=== PATIENT | female | born 1985 | race Caucasian/White ===

== ENCOUNTER 2019-04-24 18:19 | Emergency (ER) | payer MEDICARE, SELFPAY ==
--- NOTE | 2019-04-24 18:27 | XR_ITS ---
WS: [id number] CHEST 2 VIEWS HISTORY: cough COMPARISON: 07/13/2016 Lungs: Clear with no abnormality. No pleural effusion or pneumothorax. Cardiac size: Normal. Mediastinum/Aorta: Normal mediastinum. Bones: Normal. XR/XR chest 2V* [id number] IMPRESSION: Normal chest.
[2019-04-24 18:43] VITALS: BP 142/94; PULSE 94; RESP 16; TEMP 36.9; O2SAT 98; BMI 33.3
== END 2019-04-24 20:42 | disposition home or self-care (01) ==
LOC: ER 19:38
PROVIDERS: Emergency Provider Nurse Practitioner Family; Family Provider Family Medicine; PCP Family Medicine
DX: Z53.21 Procedure and treatment not carried out due to patient leaving prior to being seen by health care provider (principal)
CPT/HCPCS: 71046; 99281

== ENCOUNTER 2019-05-15 13:34 | Emergency (ER) | payer MEDICARE, SELFPAY ==
[2019-05-15 14:01] VITALS: BP 133/98; PULSE 119; RESP 18; TEMP 37.1; O2SAT 99; BMI 33.6
[2019-05-15 14:54] LABS: Influenza A by IFA Negative (Negative); Influenza B by IFA Positive (Negative)
--- NOTE | 2019-05-15 15:11 | ED_ITS ---
Entered by Radha Urias, acting as scribe for Jessica Beauchamp MD May 15, 2019 13:34 HPI - Fever General: Chief Complaint: Fever Stated Complaint: flu s/s Time Seen by Provider: 05/15/19 15:11 Source: patient Mode of arrival: ambulatory Limitations: no limitations History of Present Illness: HPI Narrative: 34 yo Female presents to ED with complaint of flu like symptoms. Pt states that she woke up Tuesday and was fine and a little later in the day she was feeling bad. MD elicited complaint: fever Onset (ago): day(s) Exacerbating factors: nothing Relieving factors: nothing Associated symptoms: Reports chills, headache(s) and myalgias; Deny abdominal pain, chest pain, diarrhea, dysuria, nausea or vomiting Review of Systems 2 Const: Reports: fever, chills and body aches Eyes: Denies: blurry vision or eye discomfort ENMT: Denies: throat pain or dental pain Card: Denies: chest pain Resp: Denies: shortness of breath GI: Denies: abdominal pain, nausea, vomiting or diarrhea : Denies: painful urination Musc: Denies: neck pain or back pain Skin/Breast: Denies: rash Neuro: Reports: headache Psych: Denies: depression Medhat/Lymph: Denies: easy bruising All/Imm: Denies: hives PFSH ED PFSH: Statuses (acute, chronic, etc) shown below reflect problem list status as previously entered and may not be historically accurate Social History Smoking and tobacco status: current every day smoker Female Reproductive History: Date of last menstrual period: 03/02/14 Physical Exam Const: COMMON NORMALS: no apparent distress, oriented x3 and healthy appearing HENMT: COMMON NORMALS: normocephalic and head/scalp atraumatic HEAD & SCALP: normocephalic and atraumatic Eye: COMMON NORMALS: PERRL and EOMs intact bilaterally PUPIL: Yes PERRL Neck/C-Spine: COMMON NORMALS: full ROM and supple Chest: COMMONS NORMALS: inspection of chest normal and palpation of chest normal Resp: COMMON NORMALS: normal respiratory effort, no retractions, no use of accessory muscles and clear to auscultation bilaterally AUSCULTATION: clear to auscultation bilaterally Cardio: COMMON NORMALS: regular rate, regular rhythm and no murmurs RATE: regular rate RHYTHM: regular rhythm GI: COMMON NORMALS: normal to inspection, nondistended, normoactive bowel sounds, soft to palpation, non-tender and no masses PALPATION: Yes soft Extremity: COMMON NORMALS: normal to inspection and full ROM Neuro: COMMON NORMALS: oriented x3, moves all extremities and no focal motor deficits Psych: COMMON NORMALS: mental status grossly normal, thought process normal and cooperative THOUGHT PROCESS: normal thought process Skin: COMMON NORMALS: no rashes or lesions noted and no wounds GENERAL SKIN EXAM: no rashes or lesions noted Course Vital Signs: Vital signs: Vital Signs Temperature 98.7 F 05/15/19 14:01 Pulse Rate 119 H 05/15/19 14:01 Respiratory Rate 18 05/15/19 14:01 Blood Pressure 133/98 05/15/19 14:01 Pulse Oximetry 99 05/15/19 14:01 MDM - Fever MDM Narrative: Medical decision making narrative: Patient presents here with fever along with chills and tested positive for flu B. Patient's otherwise well-appearing here. She has no signs of pneumonia or sepsis. She is out of the treatment window for Tamiflu. She is to follow-up with her primary care doctor in 3 to 5 days and return to the ER if she is feeling worse. She understands and agrees to this plan. 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
[2019-05-15 15:43] VITALS: BP 137/85; PULSE 84; RESP 20; O2SAT 97
== END 2019-05-15 15:44 | disposition home or self-care (01) ==
PROVIDERS: Emergency Provider Emergency Medicine; Family Provider Family Medicine
DX: J11.1 Influenza due to unidentified influenza virus with other respiratory manifestations (principal); F17.210 Nicotine dependence, cigarettes, uncomplicated
CPT/HCPCS: 87804; 99281; 99282

== ENCOUNTER 2019-06-08 19:52 | Emergency (ER) | payer SELFPAY ==
[2019-06-08 19:55] VITALS: BP 161/113; PULSE 89; RESP 16; TEMP 36.7; O2SAT 98; BMI 32.9
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
[2019-06-08 20:42] VITALS: RESP 16
[2019-06-08] MEDS: ketorolac 60 mg/2 mL INJ IM (20:42)
[2019-06-08] MEDS: oxyCODONE-APAP 5-325 mg Tablet 2 TAB PO (20:42)
[2019-06-08] MEDS: ondansetron 2 mg/ML SDV 2 mL 4 MG IM (22:20)
[2019-06-08 22:34] VITALS: BP 134/84; PULSE 78; RESP 16; O2SAT 98
== END 2019-06-08 22:35 | disposition home or self-care (01) ==
PROVIDERS: Emergency Provider Emergency Medicine; Family Provider Family Medicine
DX: S13.4XXA Sprain of ligaments of cervical spine, initial encounter (principal); F17.200 Nicotine dependence, unspecified, uncomplicated; V89.2XXA Person injured in unspecified motor-vehicle accident, traffic, initial encounter; Y92.488 Other paved roadways as the place of occurrence of the external cause
CPT/HCPCS: 72125; 73030; 96372; 99281; 99283; J1885; J2405

== ENCOUNTER → 2019-10-11 08:46 | Outpatient (BNVA) | payer MEDICARE, SELFPAY | PROVIDERS: Family Provider Family Medicine; Visit Provider Psychiatry & Neurology Psychiatry | DX: F43.12 Post-traumatic stress disorder, chronic (principal); F31.81 Bipolar II disorder; F17.200 Nicotine dependence, unspecified, uncomplicated; F10.21 Alcohol dependence, in remission; F12.21 Cannabis dependence, in remission | CPT/HCPCS: 99204 ==

== ENCOUNTER → 2019-10-23 07:58 | Outpatient (BNVA) | payer MEDICARE, SELFPAY | PROVIDERS: Family Provider Family Medicine; Visit Provider Psychiatry & Neurology Psychiatry | DX: F31.81 Bipolar II disorder (principal); F10.21 Alcohol dependence, in remission; F12.21 Cannabis dependence, in remission; F17.200 Nicotine dependence, unspecified, uncomplicated; F43.12 Post-traumatic stress disorder, chronic | CPT/HCPCS: 99214 ==

== ENCOUNTER → 2019-12-07 08:13 | Outpatient (BNVA) | payer MEDICARE, SELFPAY | PROVIDERS: Family Provider Family Medicine; Visit Provider Psychiatry & Neurology Psychiatry | DX: F31.81 Bipolar II disorder (principal); F43.12 Post-traumatic stress disorder, chronic; F12.21 Cannabis dependence, in remission; F10.21 Alcohol dependence, in remission; F17.200 Nicotine dependence, unspecified, uncomplicated | CPT/HCPCS: 99214 ==

== ENCOUNTER → 2020-01-18 08:00 | Outpatient (BNVA) | payer MEDICARE, SELFPAY | PROVIDERS: Family Provider Family Medicine; Visit Provider Psychiatry & Neurology Psychiatry | DX: F43.12 Post-traumatic stress disorder, chronic (principal); F31.81 Bipolar II disorder; F12.21 Cannabis dependence, in remission; F10.21 Alcohol dependence, in remission; F17.200 Nicotine dependence, unspecified, uncomplicated | CPT/HCPCS: 99214 ==

== ENCOUNTER → 2020-03-17 12:14 | Outpatient (BNVA) | payer MEDICARE, SELFPAY | PROVIDERS: Family Provider Family Medicine; Visit Provider Nurse Practitioner Family | DX: Z20.828 Contact with and (suspected) exposure to other viral communicable diseases (principal); J02.9 Acute pharyngitis, unspecified | CPT/HCPCS: 87071; 87635; 87880 ==

== ENCOUNTER → 2020-04-30 07:45 | Outpatient (BNVA) | payer MEDICARE, SELFPAY | PROVIDERS: Family Provider Family Medicine; Visit Provider Psychiatry & Neurology Psychiatry | DX: F43.12 Post-traumatic stress disorder, chronic (principal); F31.81 Bipolar II disorder; F10.21 Alcohol dependence, in remission; F12.21 Cannabis dependence, in remission; F17.200 Nicotine dependence, unspecified, uncomplicated | CPT/HCPCS: 99213 ==

== ENCOUNTER → 2020-05-01 09:14 | Outpatient (BNVA) | payer MEDICARE, SELFPAY | PROVIDERS: Family Provider Family Medicine; Visit Provider Psychiatry & Neurology Psychiatry | DX: F31.81 Bipolar II disorder (principal); F12.21 Cannabis dependence, in remission; F10.21 Alcohol dependence, in remission; F17.200 Nicotine dependence, unspecified, uncomplicated; F43.12 Post-traumatic stress disorder, chronic | CPT/HCPCS: 80061; 83036; 84443 ==

== ENCOUNTER → 2020-05-08 12:43 | Outpatient (BNVA) | payer MEDICARE, SELFPAY | PROVIDERS: Family Provider Family Medicine; PCP Family Medicine; Visit Provider Nurse Practitioner Family | DX: Z20.828 Contact with and (suspected) exposure to other viral communicable diseases (principal); R05 Cough | CPT/HCPCS: 87071; 87635; 87880 ==

== ENCOUNTER 2020-06-10 10:14 | Inpatient (IN) | payer MEDICARE, SELFPAY ==
--- NOTE | 2020-06-10 10:16 | ED_ITS ---
Documented by User: ENMA Marin 06/10/20 11:56 HPI - Psych General: Chief Complaint: Psychiatric Symptoms Stated Complaint: PSYCH EVAL Time Seen by Provider: 06/10/20 10:15 Source: patient Mode of arrival: ambulatory Limitations: no limitations History of Present Illness: HPI Narrative: Patient is a nice 35-year-old female who presents to ED today at the recommendation of her crisis counselor. Patient tells me that she contacted her crisis counselor this morning with complaints of labile moods and suicidal ideations. Patient tells me she had a very rough weekend consisting of alternating periods of screaming and crying. Patient tells me she was taking her medications and had thoughts of how many she could take to make her pain stop. Patient is very tearful during exam. She tells me she has a daughter that she would like to live for but was having thoughts of who could take care of her if patient were . Patient states she did miss a few of her psychiatric medication doses last week but states she has done this previously without such severe side effects. She is currently going through a break-up with her boyfriend. She denies HI/hallucinations. No drug or alcohol use. She sees Dr. Brower at [facility]. complaint: suicidal ideation Onset (ago): day(s) Duration: constant History of same: Yes Context: significant life stressor Associated psychiatric symptoms: depression and suicidal ideation Associated symptoms: Reports depression and suicidal ideation; Deny auditory hallucinations, visual hallucinations or homicidal ideation Treatments prior to arrival: none If self harm: admits thoughts of self harm Review of Systems Const: Denies: fever(s) or chills Card: Denies: chest pain, palpitations, lightheadedness or syncope Resp: Denies: dyspnea GI: Denies: abdominal pain, nausea, vomiting or diarrhea Skin/Breast: Denies: rash Neuro: Denies: headache(s) Psych: Reports: anxiety, depression, mood swings and suicidal ideation; Denies: visual hallucinations, auditory hallucinations or homicidal ideation [facility] ED PFSH: Family History (Updated 05/19/19 @ 16:43 by Aura Weber LPN) Other CAD (coronary artery disease) Cancer Hypertension Social History (Updated 10/11/19 @ 09:14 by Enrique Laguna LPN) Smoking and tobacco status: current every day smoker cigarettes Packs smoked per day: 0.75 Years cigarettes smoked: 18 Quit status (tobacco): has tried quititng Number of times tried to quit tobacco: 3 Second hand smoke exposure: Yes Smoking risk assessment/counseling performed?: No Current gender identity: Female Female Reproductive History: Date of last menstrual period: 03/02/14 Physical Exam Const: COMMON NORMALS: no acute distress, patient oriented x3, alert and well nourished GENERAL APPEARANCE: cooperative and well kempt Resp: COMMON NORMALS: normal respiratory effort and clear to auscultation bilaterally AUSCULTATION: clear to auscultation bilaterally Cardio: COMMON NORMALS: regular rate and regular rhythm RATE: regular rate RHYTHM: regular rhythm Neuro: ANTHONY COMA SCALE: document GCS findings [place] coma scale eye opening: Spontaneous [place] coma scale verbal response: Orientated Anthony coma scale motor response: Obey commands [place] coma scale total score: 15 COMMON NORMALS: patient oriented x3 SENSORIUM/ORIENTATION: Yes alert Psych: COMMON NORMALS: mental status grossly normal, Normal thought process present, cooperative, speech normal, activity/motor behavior normal, denies hallucinations and denies homicidal ideation APPEARANCE: Yes grossly normal and Yes well kempt ATTITUDE: Yes calm ACTIVITY/MOTOR BEHAVIOR: Yes appropriate eye contact and No psychomotor agitation SPEECH: Yes normal speech MOOD & AFFECT: Yes tearful THOUGHT PROCESS: Normal thought process present THOUGHT CONTENT: Yes Normal thought content present ATTENTION/CONCENTRATION: Yes attention grossly intact and Yes concentration grossly intact MEMORY/COGNITION: Yes memory grossly intact and Yes cognition grossly intact INSIGHT: Good insight present (Psych) JUDGEMENT: Good judgement present (Psych) MDM - Psych MDM Narrative: Medical decision making narrative: Affidavit was placed on chart. I have discussed with Dr. Conway who accepts pt to NPU. I have spoken to Dr. Londono who will write admission orders. Lab Data: Labs: Lab Results 06/10/20 06/10/20 06/10/20 Range/Units 10:47 10:56 10:56 WBC 10.9 H (4.0-10.0) 10^3/ uL RBC 4.75 (4.1-5.3) 10^6/u L Hgb 13.9 (11.5-15.3) g/dL Hct 42.1 (37.0-47.0) % MCV 88.6 (81-99) fL MCH 29.3 (28.0-34.0) pg MCHC 33.0 (30.0-36.0) g/dL RDW 12.7 (12.1-15.1) % Plt Count 345 (130-400) 10^3/c mm MPV 9.4 (7.4-10.4) fL Neut % (Auto) 65.4 % Lymph % (Auto) 25.1 % Pacific % (Auto) 6.3 % Eos % (Auto) 2.5 % Baso % (Auto) 0.5 % Neut # (Auto) 7.11 (1.8-7.7) 10^3/u L Lymph # (Auto) 2.7 (0.8-4.8) 10^3/u L Pacific # (Auto) 0.7 (0.2-0.9) 10^3/u L Eos # (Auto) 0.3 (0.0-0.8) 10^3/u L Baso # (Auto) 0.1 (0.0-0.1) 10^3/u L Nucleated RBC % (a uto) 0 % Nucleated RBCs # 0.0 /100WBC Sodium 139 (136-145) mmol/L Potassium 4.0 (3.5-5.1) mmol/L Chloride 106 (98-107) mmol/L Carbon Dioxide 24 (22-29) mmol/L Anion Gap 13.0 (5-19) BUN 15 (6-20) mg/dL Creatinine 0.7 (0.5-0.9) mg/dL GFR Calculation 95.2 (90-130) mL/min Glucose 93 (65-115) mg/dL Calculated Osmolal ity 289 (285-295) mOsm/k g Calcium 9.5 (8.5-10.5) mg/dL Total Bilirubin 0.2 (0.15-1.2) mg/dL AST 21 (0-32) U/L ALT 32 (0-33) U/L Alkaline Phosphata se 97 (35-105) IU/L Total Protein 7.9 (6.6-8.7) g/dL Albumin 4.3 (3.5-5.2) g/dL Globulin 3.6 (1.3-4.6) g/dL HCG, Qual (Negative) Salicylates < 0.3 L (3-10) mg/dL Urine Opiates Scre en Negative (Negative) ng/mL Acetaminophen < 5.0 L (10-30) ug/mL Ur Barbiturates Sc reen Negative (Negative) ng/mL Ur Phencyclidine S crn Negative (Negative) ng/mL Ur Amphetamines Sc reen Negative (Negative) ng/mL U Benzodiazepines Scrn Negative (Negative) ng/mL Urine Cocaine Scre en Negative (Negative) ng/mL U Marijuana (THC) Screen Negative (Negative) ng/mL Ethyl Alcohol < 10 (0-10) mg/dL 06/10/20 Range/Units 10:56 WBC (4.0-10.0) 10^3/ uL RBC (4.1-5.3) 10^6/u L Hgb (11.5-15.3) g/dL Hct (37.0-47.0) % MCV (81-99) fL MCH (28.0-34.0) pg MCHC (30.0-36.0) g/dL RDW (12.1-15.1) % Plt Count (130-400) 10^3/c mm MPV (7.4-10.4) fL Neut % (Auto) % Lymph % (Auto) % Pacific % (Auto) % Eos % (Auto) % Baso % (Auto) % Neut # (Auto) (1.8-7.7) 10^3/u L Lymph # (Auto) (0.8-4.8) 10^3/u L Pacific # (Auto) (0.2-0.9) 10^3/u L Eos # (Auto) (0.0-0.8) 10^3/u L Baso # (Auto) (0.0-0.1) 10^3/u L Nucleated RBC % (a uto) % Nucleated RBCs # /100WBC Sodium (136-145) mmol/L Potassium (3.5-5.1) mmol/L Chloride (98-107) mmol/L Carbon Dioxide (22-29) mmol/L Anion Gap (5-19) BUN (6-20) mg/dL Creatinine (0.5-0.9) mg/dL GFR Calculation (90-130) mL/min Glucose (65-115) mg/dL Calculated Osmolal ity (285-295) mOsm/k g Calcium (8.5-10.5) mg/dL Total Bilirubin (0.15-1.2) mg/dL AST (0-32) U/L ALT (0-33) U/L Alkaline Phosphata se (35-105) IU/L Total Protein (6.6-8.7) g/dL Albumin (3.5-5.2) g/dL Globulin (1.3-4.6) g/dL HCG, Qual Negative (Negative) Salicylates (3-10) mg/dL Urine Opiates Scre en (Negative) ng/mL Acetaminophen (10-30) ug/mL Ur Barbiturates Sc reen (Negative) ng/mL Ur Phencyclidine S crn (Negative) ng/mL Ur Amphetamines Sc reen (Negative) ng/mL U Benzodiazepines Scrn (Negative) ng/mL Urine Cocaine Scre en (Negative) ng/mL U Marijuana (THC) Screen (Negative) ng/mL Ethyl Alcohol (0-10) mg/dL Discharge Plan Discharge Patient Disposition: Admitted As Inpatient Clinical Impression: Labile mood, Suicidal ideation Condition: Stable Prescriptions: No Action diphenhydramine HCl [Benadryl] 25 mg capsule 50 mg PO PRN RF: 0 buspirone 10 mg tablet 10 mg PO TID Qty: 90 RF: 2 lamotrigine [Lamictal] 100 mg tablet 100 mg PO BID Qty: 60 RF: 2 oxcarbazepine 150 mg tablet 150 mg PO BID Qty: 60 RF: 2 trazodone 50 mg tablet 100 mg PO BEDTIME RF: 0 Chantix 1 mg tablet See Rx Instructions .ROUTE .COMPLEX RF: 0 Referrals: Tyrese Scott MD [Primary Care Provider] - Patient Instructions: Opioid Safety Coding Level of Care Code ED Account Planner for Chg Fwd Exam Detailed Documented by User: Lewis Londono DO 06/10/20 11:45 HPI - Psych General: Chief Complaint: Psychiatric Symptoms Stated Complaint: PSYCH EVAL Time Seen by Provider: 06/10/20 10:15 PFSH ED PFSH: Family History (Updated 05/19/19 @ 16:43 by Aura Weber LPN) Other CAD (coronary artery disease) Cancer Hypertension Social History (Updated 10/11/19 @ 09:14 by Enrique Laguna LPN) Smoking and tobacco status: current every day smoker cigarettes Packs smoked per day: 0.75 Years cigarettes smoked: 18 Quit status (tobacco): has tried quititng Number of times tried to quit tobacco: 3 Second hand smoke exposure: Yes Smoking risk assessment/counseling performed?: No Current gender identity: Female MDM - Psych MDM Narrative: Medical decision making narrative: Bruce the case with ENMA Marin. Reviewed chart labs and plan. Agree with assessment and plan Ms. Diaz will talk to attending psychiatry orders have been written for admission patient on 96-hour hold. Lab Data: Labs: Lab Results 06/10/20 06/10/20 06/10/20 Range/Units 10:47 10:56 10:56 WBC 10.9 H (4.0-10.0) 10^3/ uL RBC 4.75 (4.1-5.3) 10^6/u L Hgb 13.9 (11.5-15.3) g/dL Hct 42.1 (37.0-47.0) % MCV 88.6 (81-99) fL MCH 29.3 (28.0-34.0) pg MCHC 33.0 (30.0-36.0) g/dL RDW 12.7 (12.1-15.1) % Plt Count 345 (130-400) 10^3/c mm MPV 9.4 (7.4-10.4) fL Neut % (Auto) 65.4 % Lymph % (Auto) 25.1 % Pacific % (Auto) 6.3 % Eos % (Auto) 2.5 % Baso % (Auto) 0.5 % Neut # (Auto) 7.11 (1.8-7.7) 10^3/u L Lymph # (Auto) 2.7 (0.8-4.8) 10^3/u L Pacific # (Auto) 0.7 (0.2-0.9) 10^3/u L Eos # (Auto) 0.3 (0.0-0.8) 10^3/u L Baso # (Auto) 0.1 (0.0-0.1) 10^3/u L Nucleated RBC % (a uto) 0 % Nucleated RBCs # 0.0 /100WBC Sodium 139 (136-145) mmol/L Potassium 4.0 (3.5-5.1) mmol/L Chloride 106 (98-107) mmol/L Carbon Dioxide 24 (22-29) mmol/L Anion Gap 13.0 (5-19) BUN 15 (6-20) mg/dL Creatinine 0.7 (0.5-0.9) mg/dL GFR Calculation 95.2 (90-130) mL/min Glucose 93 (65-115) mg/dL Calculated Osmolal ity 289 (285-295) mOsm/k g Calcium 9.5 (8.5-10.5) mg/dL Total Bilirubin 0.2 (0.15-1.2) mg/dL AST 21 (0-32) U/L ALT 32 (0-33) U/L Alkaline Phosphata se 97 (35-105) IU/L Total Protein 7.9 (6.6-8.7) g/dL Albumin 4.3 (3.5-5.2) g/dL Globulin 3.6 (1.3-4.6) g/dL HCG, Qual (Negative) Salicylates < 0.3 L (3-10) mg/dL Urine Opiates Scre en Negative (Negative) ng/mL Acetaminophen < 5.0 L (10-30) ug/mL Ur Barbiturates Sc reen Negative (Negative) ng/mL Ur Phencyclidine S crn Negative (Negative) ng/mL Ur Amphetamines Sc reen Negative (Negative) ng/mL U Benzodiazepines Scrn Negative (Negative) ng/mL Urine Cocaine Scre en Negative (Negative) ng/mL U Marijuana (THC) Screen Negative (Negative) ng/mL Ethyl Alcohol < 10 (0-10) mg/dL 06/10/20 Range/Units 10:56 WBC (4.0-10.0) 10^3/ uL RBC (4.1-5.3) 10^6/u L Hgb (11.5-15.3) g/dL Hct (37.0-47.0) % MCV (81-99) fL MCH (28.0-34.0) pg MCHC (30.0-36.0) g/dL RDW (12.1-15.1) % Plt Count (130-400) 10^3/c mm MPV (7.4-10.4) fL Neut % (Auto) % Lymph % (Auto) % Pacific % (Auto) % Eos % (Auto) % Baso % (Auto) % Neut # (Auto) (1.8-7.7) 10^3/u L Lymph # (Auto) (0.8-4.8) 10^3/u L Pacific # (Auto) (0.2-0.9) 10^3/u L Eos # (Auto) (0.0-0.8) 10^3/u L Baso # (Auto) (0.0-0.1) 10^3/u L Nucleated RBC % (a uto) % Nucleated RBCs # /100WBC Sodium (136-145) mmol/L Potassium (3.5-5.1) mmol/L Chloride (98-107) mmol/L Carbon Dioxide (22-29) mmol/L Anion Gap (5-19) BUN (6-20) mg/dL Creatinine (0.5-0.9) mg/dL GFR Calculation (90-130) mL/min Glucose (65-115) mg/dL Calculated Osmolal ity (285-295) mOsm/k g Calcium (8.5-10.5) mg/dL Total Bilirubin (0.15-1.2) mg/dL AST (0-32) U/L ALT (0-33) U/L Alkaline Phosphata se (35-105) IU/L Total Protein (6.6-8.7) g/dL Albumin (3.5-5.2) g/dL Globulin (1.3-4.6) g/dL HCG, Qual Negative (Negative) Salicylates (3-10) mg/dL Urine Opiates Scre en (Negative) ng/mL Acetaminophen (10-30) ug/mL Ur Barbiturates Sc reen (Negative) ng/mL Ur Phencyclidine S crn (Negative) ng/mL Ur Amphetamines Sc reen (Negative) ng/mL U Benzodiazepines Scrn (Negative) ng/mL Urine Cocaine Scre en (Negative) ng/mL U Marijuana (THC) Screen (Negative) ng/mL Ethyl Alcohol (0-10) mg/dL Discharge Plan Discharge Patient Disposition: Admitted As Inpatient Clinical Impression: Labile mood, Suicidal ideation Condition: Stable Prescriptions: No Action diphenhydramine HCl [Benadryl] 25 mg capsule 50 mg PO PRN RF: 0 buspirone 10 mg tablet 10 mg PO TID Qty: 90 RF: 2 lamotrigine [Lamictal] 100 mg tablet 100 mg PO BID Qty: 60 RF: 2 oxcarbazepine 150 mg tablet 150 mg PO BID Qty: 60 RF: 2 trazodone 50 mg tablet 100 mg PO BEDTIME RF: 0 Chantix 1 mg tablet See Rx Instructions .ROUTE .COMPLEX RF: 0 Referrals: Tyrese Scott MD [Primary Care Provider] - Patient Instructions: Opioid Safety Coding Level of Care Code ED Account Planner for Ryg Fwd Exam Detailed
[2020-06-10 10:25] VITALS: BP 147/114; PULSE 133; RESP 16; TEMP 36.4; O2SAT 93; BMI 33.6
[2020-06-10 11:06] LABS: Basophils # 0.1 10^3/uL (0.0-0.1); Basophils % 0.5 %; Eosinophils # 0.3 10^3/uL (0.0-0.8); Eosinophils % 2.5 %; Hematocrit 42.1 % (37.0-47.0); Hemoglobin 13.9 g/dL (11.5-15.3); Lymphocytes # 2.7 10^3/uL (0.8-4.8); Lymphocytes % 25.1 %; Mean Corpuscular Hemoglobin 29.3 pg (28.0-34.0); Mean Corpuscular Volume 88.6 fL (81-99); Mean Platelet Volume 9.4 fL (7.4-10.4); Monocytes # 0.7 10^3/uL (0.2-0.9); Monocytes % 6.3 %; Neutrophils # 7.11 10^3/uL (1.8-7.7); Neutrophils % 65.4 %; Nucleated Red Blood Cells % 0 %; Platelet Count 345 10^3/cmm (130-400); Red Blood Count 4.75 10^6/uL (4.1-5.3); Red Cell Distribution Width 12.7 % (12.1-15.1); White Blood Count 10.9 10^3/uL (4.0-10.0)
[2020-06-10 11:15] LABS: Amphetamines Screen Urine Negative (Negative); Barbiturates Screen Urine Negative (Negative); Benzodiazepines Screen Urine Negative (Negative); Cocaine Screen Urine Negative (Negative); Opiate Screen Urine Negative (Negative); PCP Screen Urine Negative (Negative); THC Screen Urine Negative (Negative)
[2020-06-10 11:28] LABS: Alanine Aminotransferase 32 U/L (0-33); Albumin Level 4.3 g/dL (3.5-5.2); Alkaline Phosphatase 97 IU/L (35-105); Aspartate Amino Transferase 21 U/L (0-32); Blood Urea Nitrogen 15 mg/dL (6-20); Calcium 9.5 mg/dL (8.5-10.5); Carbon Dioxide 24 mmol/L (22-29); Chloride 106 mmol/L (98-107); Globulin 3.6 g/dL (1.3-4.6); Glomerular Filtration Rate 95.2 mL/min (90-130); Glucose 93 mg/dL (65-115); Osmolality Calculated 289 mOsm/kg (285-295); Sodium 139 mmol/L (136-145); Total Bilirubin 0.2 mg/dL (0.15-1.2); Total Protein 7.9 g/dL (6.6-8.7)
[2020-06-10 11:29] LABS: HCG, Serum Qual Negative (Negative)
[2020-06-10 11:36] LABS: Acetaminophen < 5.0 ug/mL (10-30); Alcohol Level < 10 mg/dL (0-10); Salicylate < 0.3 mg/dL (3-10)
--- NOTE | 2020-06-10 11:36 | PC.NURSE ---
Family at bedside. Sitter 1:1
[2020-06-10 11:37] VITALS: BP 131/87; PULSE 94; RESP 18; O2SAT 97
[2020-06-10 12:10] VITALS: BP 131/86; PULSE 95; RESP 18; TEMP 36.4; O2SAT 96
[2020-06-10 12:37] VITALS: BP 130/91; PULSE 86; RESP 20; TEMP 36.8; O2SAT 98
[2020-06-10 14:00] VITALS: BP 130/91; PULSE 86; RESP 20; TEMP 36.8; O2SAT 98
[2020-06-10 19:23] VITALS: BP 125/86; PULSE 93; RESP 18; TEMP 36.3; O2SAT 96
[2020-06-10] MEDS: escitalopram 10 mg Tablet 5 MG PO (21:23)
[2020-06-10] MEDS: diphenhydrAMINE 50 mg Capsule PO (21:23)
[2020-06-10] MEDS: BuSPIRONE 10 mg Tablet PO (21:26)
[2020-06-10] MEDS: trazodone 100 mg Tablet PO (21:26)
[2020-06-11 06:00] VITALS: BP 120/83; PULSE 84; RESP 16; TEMP 37.4; O2SAT 95
[2020-06-11] MEDS: lamoTRIgine 100 mg Tablet PO (07:51)
[2020-06-11] MEDS: BuSPIRONE 10 mg Tablet PO ×3 (07:52→20:48)
--- NOTE | 2020-06-11 10:57 | ECG_ITS ---
[facility] Test Date: 2020-06-11 Pat Name: Caroline Huitron Department: Room: 154 Gender: Female Client Advocate: : 1985 Requested By: Catrachito Bernal Order Number: [id number] Reading MD: ARIANA HERNÁNDEZ Measurements Intervals [place] Rate: 84 P: 53 AR: 177 QRS: 27 QRSD: 87 T: 70 QT: 382 QTc: 452 Interpretive Statements SINUS RHYTHM Compared to ECG 06/15/2016 14:58:24 No significant changes Electronically Signed On 06-11-2020 20:08:51 SENIOR MECHANICAL ESTIMATOR by ARIANA HERNÁNDEZ [id number]
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
[2020-06-11] MEDS: escitalopram 10 mg Tablet 5 MG PO (11:21)
[2020-06-11] MEDS: ziprasidone hcl 20 mg Capsule PO ×2 (11:40→16:48)
[2020-06-11 14:00] VITALS: BP 116/78; PULSE 94; RESP 20; TEMP 36.8; O2SAT 96
[2020-06-11 19:26] VITALS: BP 129/70; PULSE 91; RESP 18; TEMP 36.8; O2SAT 95
[2020-06-11] MEDS: lamoTRIgine 25 mg Tablet 50 MG PO (20:48)
[2020-06-11] MEDS: trazodone 100 mg Tablet PO (20:49)
[2020-06-11] MEDS: hyDROXYzine 25 mg Capsule 50 MG PO (20:49)
--- NOTE | 2020-06-11 20:51 | PC.NURSE ---
Patient requested Vistaril for anxiety and to help sleep. 50mg Vistaril given.
[2020-06-12 06:00] VITALS: BP 125/86; PULSE 73; RESP 17; TEMP 36.4; O2SAT 95
[2020-06-12] MEDS: ziprasidone hcl 20 mg Capsule PO ×2 (06:17→15:56)
[2020-06-12] MEDS: escitalopram 10 mg Tablet 5 MG PO (07:49)
[2020-06-12] MEDS: BuSPIRONE 10 mg Tablet PO ×3 (07:50→21:03)
[2020-06-12] MEDS: lamoTRIgine 25 mg Tablet 50 MG PO ×2 (07:50→21:03)
[2020-06-12 14:00] VITALS: BP 126/82; PULSE 74; RESP 18; TEMP 36.8; O2SAT 98
--- NOTE | 2020-06-12 14:44 | P.PN_ITS ---
Subjective NPU Subjective: Interval history: Caroline presents today reporting that she and Dr. Conway have been working on getting her restarted on medications that would be effective for her reported bipolar disorder. She was started on Lexapro and Geodon and she reports feeling significantly better compared to how she felt when she arrived. We reviewed the medications were started and agreed to at least 1 more day on the medication with improvement. We agreed we would discuss the discharge plan with the treatment team in the morning. Mental Status Exam MSE Comments: This is an obese white female in hospital scrubs with adequate grooming and eye contact. No abnormal movements except for mild psychomotor retardation. Cooperative with exam in no acute distress. Speech was slightly decreased rate and volume. Mood described as feeling better, affect slightly subdued. Thought process organized. Thought content: Patient denied suicidal or homicidal ideation, there were no delusions reported or noted, she denied any auditory or visual hallucinations. Attention and concentration appeared intact and memory appeared reliable but none were formally tested. She is oriented x3. Insight and judgment appear fair impulse control appears fair. Vitals/I&O/Wt Last Vital Signs Temp 98.4 F 06/12/20 21:12 Pulse 87 06/12/20 21:12 Resp 18 06/12/20 21:12 BP 122/87 06/12/20 21:12 Pulse Ox 95 06/12/20 21:12 Data NPU : 06/10/20 10:56 06/10/20 10:56 A&P Additional A&P Information (1) Suicidal ideation: (2) Bipolar 2 disorder: (3) Post-traumatic stress disorder, chronic: Additional A&P Information 35-year-old female with history of bipolar 2 disorder and PTSD presenting with emotionally labile mood and affect, tearful episodes in the context of what sounds like mixed bipolar symptoms with significant depressive episodes and on going, near daily trauma related symptoms. She has had notable improvement with initiation of alternate meds versus the Lamictal she presented on. We will continue the cross taper of mood stabilizer and adjustment of the medication. 1. Continue current medication. 2. Continue every 15 minute checks for safety. 3. Encourage individual, group and milieu therapies. Involuntary Hold Information 96 Hour Hold: 96 Hour Involuntary Admission: No Attestations NPU Medical Necessity Statement*: Inpatient hospitalization is medically necessary and the clinically appropriate arrangement time. We will continue to monitor medications and make changes as indicated. Likely length of stay 1 to 4 days. Coding Level of Care Code Acute Central Lab Technician for Yolanda Almazan
[2020-06-12] MEDS: acetaminophen 325 mg Tablet 650 MG PO ×2 (14:56→23:09)
--- NOTE | 2020-06-12 15:49 | PC.RESP ---
SMOKING CESSATION INFORMATION SENT TO PATIENT.
[2020-06-12] MEDS: hyDROXYzine 25 mg Capsule 50 MG PO (21:04)
[2020-06-12] MEDS: trazodone 100 mg Tablet PO (21:04)
[2020-06-12 21:12] VITALS: BP 122/87; PULSE 87; RESP 18; TEMP 36.9; O2SAT 95
--- NOTE | 2020-06-13 01:43 | PC.NURSE ---
PM ASSESSMENT PT DENIES AH/VH, DENIES SI/HI, DENIES PAIN AT THIS TIME, PT IS NOT RESTING WELL THIS EVENING, SHE IS UP AND DOWN OFTEN TO THE NURSES DESK. V/S ARE WNL, HEART AND LUNG SOUNDS NORMAL.
[2020-06-13] MEDS: acetaminophen 325 mg Tablet 650 MG PO ×2 (05:26→12:41)
[2020-06-13 06:00] VITALS: BP 128/83; PULSE 98; RESP 17; TEMP 36.7; O2SAT 95
[2020-06-13] MEDS: ziprasidone hcl 20 mg Capsule PO (06:02)
[2020-06-13] MEDS: escitalopram 10 mg Tablet 5 MG PO (07:35)
[2020-06-13] MEDS: BuSPIRONE 10 mg Tablet PO (07:35)
[2020-06-13] MEDS: lamoTRIgine 25 mg Tablet 50 MG PO (07:44)
--- NOTE | 2020-06-13 11:01 | PC.SOCIAL ---
Important Medicare Message Reviewed page 1 and 2 of Important Medicare Message with patient. Verbalized understanding and signed page 2. Original to patient and copy in chart.
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
[2020-06-13 14:16] VITALS: BP 128/83; PULSE 98; RESP 17; TEMP 36.7; O2SAT 95
[2020-06-13 17:18] LABS: Lamotrigine (Lamictal) Level <0.5 mcg/mL (4.0-18.0)
== END 2020-06-13 14:38 | disposition home or self-care (01) | DRG 885 ==
LOC: ER 11:55 → NP 12:02
PROVIDERS: Admitting Provider Psychiatry & Neurology Psychiatry; Emergency Provider Physician Assistant; PCP Family Medicine; Visit Provider Psychiatry & Neurology Psychiatry
DX: F31.81 Bipolar II disorder (principal); R45.851 Suicidal ideations; F10.21 Alcohol dependence, in remission; F17.210 Nicotine dependence, cigarettes, uncomplicated; F43.12 Post-traumatic stress disorder, chronic
CPT/HCPCS: 36415; 80053; 80175; 80306; 80307; 84703; 85025; 90471; 90686; 93005; 99285; Q0163

== ENCOUNTER → 2020-06-17 14:40 | Outpatient (BNVA) | payer MEDICARE, SELFPAY | PROVIDERS: PCP Family Medicine; Visit Provider Psychiatry & Neurology Psychiatry | DX: F31.81 Bipolar II disorder (principal); F43.12 Post-traumatic stress disorder, chronic; F12.21 Cannabis dependence, in remission; F10.21 Alcohol dependence, in remission; F17.200 Nicotine dependence, unspecified, uncomplicated | CPT/HCPCS: 99214 ==

== ENCOUNTER → 2020-07-14 08:47 | Outpatient (BNVA) | payer MEDICARE, SELFPAY | PROVIDERS: PCP Family Medicine; Visit Provider Psychiatry & Neurology Psychiatry | DX: F31.81 Bipolar II disorder (principal); F43.12 Post-traumatic stress disorder, chronic; F12.21 Cannabis dependence, in remission; F17.200 Nicotine dependence, unspecified, uncomplicated; F10.21 Alcohol dependence, in remission | CPT/HCPCS: 99214 ==

== ENCOUNTER → 2020-08-18 08:02 | Outpatient (BNVA) | payer MEDICARE, SELFPAY | PROVIDERS: PCP Family Medicine; Visit Provider Psychiatry & Neurology Psychiatry | DX: F31.81 Bipolar II disorder (principal); F43.12 Post-traumatic stress disorder, chronic; F12.21 Cannabis dependence, in remission; F10.21 Alcohol dependence, in remission; F17.200 Nicotine dependence, unspecified, uncomplicated | CPT/HCPCS: 99213 ==

== ENCOUNTER 2020-09-03 09:13 | Emergency (ER) | payer MEDICARE, SELFPAY ==
[2020-09-03 09:43] VITALS: BP 125/88; PULSE 92; RESP 14; TEMP 36.2; O2SAT 98; BMI 35.6
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
[2020-09-03 10:54] VITALS: BP 134/98; PULSE 97; RESP 16; O2SAT 99
[2020-09-03] MEDS: diphenhydrAMINE 50 mg/mL SDV 1mL IVP (11:14)
[2020-09-03] MEDS: hydrocortisone 100 mg/2 mL SDV IVP (11:15)
[2020-09-03 11:27] LABS: Basophils # 0.1 10^3/uL (0.0-0.1); Basophils % 0.9 %; Eosinophils # 0.4 10^3/uL (0.0-0.8); Eosinophils % 4.9 %; Hematocrit 41.1 % (37.0-47.0); Hemoglobin 13.5 g/dL (11.5-15.3); Lymphocytes # 2.6 10^3/uL (0.8-4.8); Lymphocytes % 31.7 %; Mean Corpuscular HGB Conc 32.8 g/dL (30.0-36.0); Mean Corpuscular Hemoglobin 29.3 pg (28.0-34.0); Mean Corpuscular Volume 89.3 fL (81-99); Mean Platelet Volume 9.6 fL (7.4-10.4); Monocytes # 0.7 10^3/uL (0.2-0.9); Monocytes % 8.6 %; Neutrophils # 4.38 10^3/uL (1.8-7.7); Neutrophils % 53.5 %; Nucleated Red Blood Cells % 0 %; Platelet Count 312 10^3/cmm (130-400); Red Cell Distribution Width 13.3 % (12.1-15.1); White Blood Count 8.2 10^3/uL (4.0-10.0)
[2020-09-03 11:30] LABS: HCG, Serum Qual Negative (Negative)
[2020-09-03 11:41] LABS: Alanine Aminotransferase 35 U/L (0-33); Albumin Level 3.8 g/dL (3.5-5.2); Alkaline Phosphatase 83 IU/L (35-105); Anion Gap 10.9 (5-19); Aspartate Amino Transferase 23 U/L (0-32); Blood Urea Nitrogen 14 mg/dL (6-20); Calcium 8.3 mg/dL (8.5-10.5); Carbon Dioxide 27 mmol/L (22-29); Chloride 107 mmol/L (98-107); Globulin 3.3 g/dL (1.3-4.6); Glomerular Filtration Rate 113.8 mL/min (90-130); Glucose 114 mg/dL (65-115); Osmolality Calculated 293 mOsm/kg (285-295); Potassium 3.9 mmol/L (3.5-5.1); Sodium 141 mmol/L (136-145); Total Bilirubin 0.2 mg/dL (0.15-1.2); Total Protein 7.1 g/dL (6.6-8.7)
[2020-09-03] MEDS: iodixanol 320 mg/mL 100mL Btl IV (11:41)
[2020-09-03 11:47] LABS: Urine Appearance Clear (CLEAR); Urine Color Yellow (Yellow); pH Urine 6 (5-7)
[2020-09-03 11:48] LABS: Add Urine Microscopic? YES; Bilirubin Urine Neg (Negative); Blood Urine 2+ (Negative); Glucose Urine UA Norm (Normal); Ketones Urine Negative (Negative); Leukocyte Esterase Urine Negative (Negative); Nitrate Urine Negative (Negative); Protein Urine Neg (Negative); Urobilinogen Urine 1 mg/dL (Negative)
[2020-09-03 11:55] LABS: Bacteria Urine 2+ /hpf; Mucus Urine 1+ /hpf; RBC Urine 15-25 /hpf (0-2); Squamous Epithelial Cell Urine 0-4 /hpf (0-5); WBC Urine 0-4 /hpf (0-5)
[2020-09-03 11:56] LABS: Add Urine Culture? Yes
[2020-09-03 12:18] VITALS: BP 169/109; PULSE 86; RESP 14; O2SAT 98
== END 2020-09-03 12:19 | disposition home or self-care (01) ==
PROVIDERS: Emergency Provider Physician Assistant
DX: S16.1XXA Strain of muscle, fascia and tendon at neck level, initial encounter (principal); S30.1XXA Contusion of abdominal wall, initial encounter; V89.2XXA Person injured in unspecified motor-vehicle accident, traffic, initial encounter; F17.210 Nicotine dependence, cigarettes, uncomplicated; Z79.899 Other long term (current) drug therapy
CPT/HCPCS: 72125; 74177; 80053; 81001; 84703; 85025; 87086; 96374; 96375; 99283; J1200; J1720; Q9967

== ENCOUNTER → 2020-09-30 07:48 | Outpatient (BNVA) | payer MEDICARE, SELFPAY | PROVIDERS: Visit Provider Psychiatry & Neurology Psychiatry | DX: F31.81 Bipolar II disorder (principal); F43.12 Post-traumatic stress disorder, chronic; F12.21 Cannabis dependence, in remission; F10.21 Alcohol dependence, in remission; F17.200 Nicotine dependence, unspecified, uncomplicated | CPT/HCPCS: 99213 ==

== ENCOUNTER → 2020-11-18 10:49 | Outpatient (BNVA) | payer MEDICARE, SELFPAY | PROVIDERS: Visit Provider Nurse Practitioner Family | DX: Z20.822 Contact with and (suspected) exposure to COVID-19 (principal) | CPT/HCPCS: 87635 ==

== ENCOUNTER → 2020-11-25 09:17 | Outpatient (BNVA) | payer MEDICARE, SELFPAY | PROVIDERS: Visit Provider Family Medicine | DX: Z20.822 Contact with and (suspected) exposure to COVID-19 (principal) | CPT/HCPCS: 87635 ==

== ENCOUNTER 2020-11-26 14:39 | Emergency (ER) | payer MEDICARE, SELFPAY ==
[2020-11-26 14:54] VITALS: BP 125/89; PULSE 89; RESP 16; TEMP 36.1; O2SAT 97; BMI 38.4
--- NOTE | 2020-11-26 17:15 | XRR_ITS ---
PROCEDURE INFORMATION: Exam: XR Chest Exam date and time: 11/26/2020 5:15 PM Age: 35 years old Clinical indication: Shortness of breath; Additional info: Persistent cough, congestion TECHNIQUE: Imaging protocol: XR of the chest. Views: 1 view. COMPARISON: CR XR chest 2V* [id number] 04/24/2019 7:08 PM FINDINGS: Lungs: Unremarkable. No consolidation. Pleural spaces: Unremarkable. No pleural effusion. No pneumothorax. Heart/Mediastinum: Unremarkable. No cardiomegaly. Bones/joints: Unremarkable. XR/XR chest 1V portable [id number] IMPRESSION: No acute findings.
--- NOTE | 2020-11-26 17:15 | W.ED.GENADLT ---
HPI - General Adult General: Chief complaint: General Medical Stated complaint: lung pain Time Seen by Provider: 11/26/20 17:15 History of Present Illness: HPI narrative: 35-year-old female comes in today with complaints of persistent cough. Patient has been treated with Levaquin and prednisone for bronchitis. Patient is also on albuterol for cough and wheezing. Patient reports that she continues to have discomfort in her chest. Patient appears mildly unwell but not toxic. Patient is alert and oriented. Patient is a smoker. Review of Systems General: Reports: 10 or more systems reviewed and unremarkable except in HPI and below Resp: Reports: non-productive cough and pain on inspiration PFS ED PFSH: Family History Other CAD (coronary artery disease) Cancer Hypertension Social History Smoking and tobacco status: current every day smoker cigarettes Packs smoked per day: 0.75 Years cigarettes smoked: 18 Quit status (tobacco): has tried quititng Number of times tried to quit tobacco: 3 Second hand smoke exposure: Yes Smoking risk assessment/counseling performed?: No Alcohol intake: never Desire information about alcohol rehabilitation?: No Desire information about substance/drug rehabilitation?: No Current gender identity: Female Female Reproductive History: Date of last menstrual period: 03/02/14 Physical Exam Const: COMMON NORMALS: no acute distress and patient oriented x3 GENERAL APPEARANCE: cooperative HENMT: COMMON NORMALS: normocephalic, TM's normal bilaterally and Normal external nose present HEAD & SCALP: normal to inspection and normocephalic NOSE: Normal external nose present TYMPANIC MEMBRANE: TM's normal bilaterally MOUTH: Normal oral and palatal mucosa present Eye: GENERAL EYE: appearance normal, both eyes and all related structures Neck/C-Spine: COMMON NORMALS: full ROM Lymph: LYMPHATIC: no lymphadenopathy noted Chest: COMMONS NORMALS: normal inspection of the chest Resp: COMMON NORMALS: normal respiratory effort EFFORT & INSPECTION: Yes able to speak in complete sentences AUSCULTATION: diminished lung sounds Cardio: COMMON NORMALS: regular rate and regular rhythm RATE: regular rate RHYTHM: regular rhythm GI: COMMON NORMALS: non-tender Back/Pelvis: COMMON NORMALS: thoracic and lumbar spine normal to inspection Extremity: COMMON NORMALS: normal to inspection Neuro: COMMON NORMALS: patient oriented x3 and moves all extremities Psych: COMMON NORMALS: mental status grossly normal and cooperative Skin: COMMON NORMALS: no rashes or lesions noted GENERAL SKIN EXAM: no rashes or lesions noted Course Vital Signs: Vital signs: Vital Signs Temperature 97.0 F L 11/26/20 14:54 Pulse Rate 89 11/26/20 14:54 Respiratory Rate 16 11/26/20 14:54 Blood Pressure 125/89 11/26/20 14:54 Pulse Oximetry 97 11/26/20 14:54 MDM - General Adult MDM Narrative: Medical decision making narrative: 35-year-old female comes in today with complaints of cough and chest congestion. Patient has on a 7-day course of Levaquin 500 mg and a 5-day course of prednisone. Patient just took her last dose of prednisone today. Patient had talked to her doctor's office today and the nurse had recommended that she come to the ER for a chest x-ray. On exam patient appears in no acute distress. Lungs are clear to auscultation. Posterior pharynx slightly erythematous. Vital signs are normal. Differential diagnosis includes but not limited to pneumonia, acute bronchitis, and malingering. Chest x-ray indicated no pneumonia. Review of the record noted that COVID-19 test was completed yesterday and was negative. Reviewed exam with patient recommended a repeat 5-day course of prednisone, completion of Levaquin, and use of albuterol as needed. Patient was also encouraged to have voice rest as she does have a little bit of laryngitis with this illness. Patient agreed to plan and continued follow-up with primary care. Discharge Plan Discharge Patient Disposition: Home Clinical Impression: Acute bronchitis Qualifiers: Bronchitis organism: unspecified organism Qualified Code(s): J20.9 - Acute bronchitis, unspecified Condition: Stable Prescriptions: Continued prednisone 20 mg tablet 40 mg PO DAILY 5 Days Qty: 10 RF: 0 No Action buspirone 10 mg tablet 10 mg PO TID Qty: 90 RF: 2 escitalopram oxalate 10 mg tablet 10 mg PO DAILY 30 Days Qty: 30 RF: 2 lamotrigine [Lamictal] 25 mg tablet 50 mg PO BID Qty: 120 RF: 2 trazodone 50 mg tablet 100 mg PO BEDTIME 30 Days Qty: 60 RF: 2 ziprasidone HCl 20 mg capsule 40 mg PO BID 30 Days Qty: 120 RF: 2 levofloxacin 500 mg tablet 500 mg PO DAILY Qty: 7 RF: 0 albuterol sulfate 90 mcg/actuation HFA aerosol inhaler 2 puff inhalation Q6H PRN (Reason: shortness of breath or wheezing) Qty: 8.5 RF: 0 fluconazole [Diflucan] 150 mg tablet 150 mg PO DAILY Qty: 1 RF: 0 Discharge Orders: Discharge ED (Routine); Ordered 11/26/20 Ordered By: Michael Jernigan Discharge Diet: Usual diet Discharge Activity: Increase activity as tolerated Patient Instructions: Acute Bronchitis (ED), Opioid Safety Activity Restrictions/Additional Instructions: Complete antibiotics. Continue with prednisone 40 mg daily for the next 5 days. Use albuterol as needed for shortness of breath, wheezing, and cough. Drink plenty of fluids. Allow plenty of voice rest for laryngitis. Follow-up with primary care as needed. Return to the emergency department for worsening shortness of breath and high fever. Coding Level of Care Code ED Wire Coiler for Yolanda Almazan Exam Comprehensive
[2020-11-26 18:13] VITALS: BP 138/83; PULSE 83; RESP 18; O2SAT 98
== END 2020-11-26 18:14 | disposition home or self-care (01) ==
PROVIDERS: Emergency Provider Nurse Practitioner Family
DX: J20.9 Acute bronchitis, unspecified (principal); F17.210 Nicotine dependence, cigarettes, uncomplicated
CPT/HCPCS: 71045; 99282

== ENCOUNTER 2020-11-27 10:32 | Outpatient (CLI) | payer MEDICARE, SELFPAY ==
[2020-11-27 11:08] LABS: Estmated Average Glucose 105; Hemoglobin A1C 5.3 % (4.0-6.0)
[2020-11-27 11:29] LABS: Alanine Aminotransferase 29 U/L (0-33); Alkaline Phosphatase 86 IU/L (35-105); Anion Gap 14.3 (5-19); Aspartate Amino Transferase 14 U/L (0-32); Blood Urea Nitrogen 12 mg/dL (6-20); Calcium 9.1 mg/dL (8.5-10.5); Carbon Dioxide 25 mmol/L (22-29); Chloride 104 mmol/L (98-107); Chol HDL Ratio 2.88 mg/dL (0.0-4.40); Cholesterol 167 mg/dL (0-200); Globulin 3.2 g/dL (1.3-4.6); Glomerular Filtration Rate 113.8 mL/min (90-130); Glucose 115 mg/dL (65-115); HDL Cholesterol 58 mg/dL (60-100); LDL Cholesterol Calculated 78 mg/dL (50-129); LDL HDL Ratio 1.34 RATIO (0.00-3.22); Osmolality Calculated 291 mOsm/kg (285-295); Potassium 3.3 mmol/L (3.5-5.1); Sodium 140 mmol/L (136-145); Thyroid Stimulating Hormone 1.62 uIU/mL (0.27-4.20); Total Bilirubin 0.2 mg/dL (0.15-1.2); Total Protein 7.2 g/dL (6.6-8.7); Triglycerides 157 mg/dL (0-150)
== END 2020-11-27 10:33 | disposition home or self-care (01) ==
PROVIDERS: Psychiatry & Neurology Psychiatry; Visit Provider Family Medicine
DX: F31.81 Bipolar II disorder (principal)
CPT/HCPCS: 36415; 80053; 80061; 83036; 84443

== ENCOUNTER → 2021-01-01 08:50 | Outpatient (BNVA) | payer MEDICARE, SELFPAY | PROVIDERS: PCP Family Medicine; Visit Provider Nurse Practitioner Family | DX: Z20.822 Contact with and (suspected) exposure to COVID-19 (principal) | CPT/HCPCS: 87635 ==

== ENCOUNTER → 2021-01-08 10:49 | Outpatient (BNVA) | payer MEDICARE, SELFPAY | PROVIDERS: PCP Family Medicine; Visit Provider Family Medicine | DX: J45.909 Unspecified asthma, uncomplicated (principal); R06.00 Dyspnea, unspecified; R09.89 Other specified symptoms and signs involving the circulatory and respiratory systems | CPT/HCPCS: 71046 ==

== ENCOUNTER → 2021-01-16 16:56 | Outpatient (BNVA) | payer MEDICARE, SELFPAY | PROVIDERS: PCP Family Medicine; Visit Provider Registered Nurse Neonatal Intensive Care | DX: N39.0 Urinary tract infection, site not specified (principal) | CPT/HCPCS: 81000 ==

== ENCOUNTER → 2021-01-19 08:39 | Outpatient (BNVA) | payer MEDICARE, SELFPAY | PROVIDERS: PCP Family Medicine; Visit Provider Psychiatry & Neurology Psychiatry | DX: F31.81 Bipolar II disorder (principal); F10.21 Alcohol dependence, in remission; F12.21 Cannabis dependence, in remission; F41.1 Generalized anxiety disorder; F17.210 Nicotine dependence, cigarettes, uncomplicated | CPT/HCPCS: 99214 ==

== ENCOUNTER → 2021-01-27 08:46 | Outpatient (BNVA) | payer MEDICARE, SELFPAY | PROVIDERS: PCP Family Medicine; Visit Provider Internal Medicine Pulmonary Disease | DX: Z01.812 Encounter for preprocedural laboratory examination (principal); Z20.822 Contact with and (suspected) exposure to COVID-19 | CPT/HCPCS: 87635 ==

== ENCOUNTER 2021-01-29 10:23 | Outpatient (CLI) | payer MEDICARE, SELFPAY ==
--- NOTE | 2021-01-29 10:59 | PFTS_ITS ---
Date of Study:01/29/21 Date of Dictation: 02/03/21 MECHANICS: Postbronchodilator forced vital capacity (FVC) is normal. Postbronchodilator forced expiratory volume in one second (FEV1) is moderately reduced. FEV1/FVC is reduced. There is no significant response to bronchodilators. FLOW VOLUME LOOP: Sloping of expiratory limb suggestive of airway obstruction. Flattening of inspiratory limb suggestive of dynamic extra thoracic obstruction. LUNG VOLUMES: Total lung capacity (TLC) is mildly reduced. Residual volume (RV) is reduced. DIFFUSING CAPACITY FOR CARBON MONOXIDE: Mildly reduced 73% . INTERPRETATION: The PFTs show mixed pattern. Postbronchodilator spirometry showed moderate obstruction with FEV1 59%. Lung volumes show mild restriction. There is mild gas transfer defect. Flow volume loop show flattening of inspiratory limb suspicious for dynamic extrathoracic obstruction. Clinical correlation strongly recommended. MTDD
[2021-01-29 11:47] LABS: Basophils # 0.1 10^3/uL (0.0-0.1); Basophils % 0.6 %; Eosinophils # 0.4 10^3/uL (0.0-0.8); Eosinophils % 2.5 %; Hematocrit 41.8 % (37.0-47.0); Hemoglobin 13.8 g/dL (11.5-15.3); Lymphocytes # 3.6 10^3/uL (0.8-4.8); Lymphocytes % 22.3 %; Mean Corpuscular Hemoglobin 29.6 pg (28.0-34.0); Mean Corpuscular Volume 89.5 fl (81-99); Mean Platelet Volume 9.4 fL (7.4-10.4); Monocytes # 0.9 10^3/uL (0.2-0.9); Monocytes % 5.4 %; Neutrophils # 11.11 10^3/uL (1.8-7.7); Neutrophils % 68.8 %; Nucleated Red Blood Cells % 0 %; Platelet Count 369 10^3/cmm (130-400); Red Blood Count 4.67 10^6/uL (4.1-5.3); Red Cell Distribution Width 13.7 % (12.1-15.1); White Blood Count 16.2 10^3/uL (4.0-10.0)
[2021-01-30 15:18] LABS: Alpha 1 Antitrypsin 160 mg/dL (83-199)
[2021-01-30 16:18] LABS: Alternaria Alternata (M6) Ige 6.73 kU/L; Alternaria Class 3; Bermuda Class 0/1; Bermuda Grass (G2) Ige 0.19 kU/L; Cat Dander Class 3; D. Farinae Class 4; Dermatophagoides Class 4; Dog Dander Class 5; Elm (T8) Ige 1.77 kU/L; Elm Class 2; English Plantain Class 4; House Dust Class 4; Immunoglobulin E 809 kU/L (<OR=114); Immunoglobulin E 823 kU/L (<OR=114); Johnson Grass (G10) Ige 0.43 kU/L; Johnson Grass Cl 1; June Grass Class 4; Lamb'S Quarters (Goose Foot) 1.05 kU/L; Lamb'S Quarters Class 2; Maple Class 2; Meadow Fescue Class 4; Mucor Racemosus Class 0/1; Oak (T7) Ige 0.56 kU/L; Oak Class 1; Penicillium Class 0/1; Penicillium Notatum (M1) Ige 0.34 kU/L; Perennial Rye Grass Class 4; Ragweeed Class 4; Rough Marsh Elder (W16) Ige 0.33 kU/L; Rough Marsh Elder Class 0/1; Sweet Vernal Class 3; Timothy Grass Class 4
== END 2021-01-29 10:24 | disposition home or self-care (01) ==
PROVIDERS: PCP Family Medicine; Visit Provider Internal Medicine Pulmonary Disease
DX: J45.909 Unspecified asthma, uncomplicated (principal); F17.210 Nicotine dependence, cigarettes, uncomplicated
CPT/HCPCS: 36415; 82103; 82785; 85025; 86003; 94060; 94726; 94729; J7611

== ENCOUNTER → 2021-02-02 13:59 | Outpatient (BNVA) | payer MEDICARE, SELFPAY | PROVIDERS: PCP Family Medicine; Visit Provider Family Medicine | DX: M13.0 Polyarthritis, unspecified (principal); M79.641 Pain in right hand; M79.642 Pain in left hand; M79.671 Pain in right foot; M79.672 Pain in left foot | CPT/HCPCS: 80053; 84550; 85651; 86160; 86162; 86200; 86235; 86255; 86376; 86431 ==

== ENCOUNTER → 2021-02-05 16:14 | Outpatient (BNVA) | payer MEDICARE, SELFPAY | PROVIDERS: PCP Family Medicine; Visit Provider Family Medicine | DX: Z20.2 Contact with and (suspected) exposure to infections with a predominantly sexual mode of transmission (principal); R30.0 Dysuria; N89.8 Other specified noninflammatory disorders of vagina | CPT/HCPCS: 81000; 87086; 87491; 87591; 87661 ==

== ENCOUNTER → 2021-03-17 18:26 | Outpatient (BNVA) | payer MEDICARE, SELFPAY | PROVIDERS: PCP Family Medicine; Visit Provider Registered Nurse Neonatal Intensive Care | DX: J02.9 Acute pharyngitis, unspecified (principal); Z20.822 Contact with and (suspected) exposure to COVID-19 | CPT/HCPCS: 87635; 87880 ==

== ENCOUNTER → 2021-04-15 17:06 | Outpatient (BNVA) | payer MEDICARE, SELFPAY | PROVIDERS: PCP Family Medicine; Visit Provider Family Medicine | DX: N93.9 Abnormal uterine and vaginal bleeding, unspecified (principal); N39.0 Urinary tract infection, site not specified; R31.9 Hematuria, unspecified | CPT/HCPCS: 81003; 87086 ==

== ENCOUNTER 2021-04-16 11:15 | Outpatient (CLI) | payer MEDICARE, SELFPAY ==
--- NOTE | 2021-04-16 11:19 | XR_ITS ---
WS: [id number] ABDOMEN 1 VIEW(S) HISTORY: Hematuria, LBP, concern for nephrolithiasis. COMPARISON: None available. Normal bowel gas pattern. There are a few small calcifications in the pelvis bilaterally. These are most consistent with phlebo liths. Small distal ureteral calcifications cannot be completely excluded. No calcification along the proximal ureter. No bone abnormality. Prior cholecystectomy. XR/XR KUB [id number] IMPRESSION: 1. There are a few tiny calcifications in the pelvis which may be phleboliths. Small distal ureteral calcifications cannot be completely excluded. 2. Prior cholecystectomy.
== END 2021-04-16 11:16 | disposition home or self-care (01) ==
PROVIDERS: PCP Family Medicine; Visit Provider Family Medicine
DX: N39.0 Urinary tract infection, site not specified (principal); R31.9 Hematuria, unspecified; Z90.49 Acquired absence of other specified parts of digestive tract
CPT/HCPCS: 74018

== ENCOUNTER → 2021-05-07 10:46 | Outpatient (BNVA) | payer MEDICARE, SELFPAY | PROVIDERS: PCP Family Medicine; Visit Provider Nurse Practitioner Family | DX: Z20.822 Contact with and (suspected) exposure to COVID-19 (principal); J44.9 Chronic obstructive pulmonary disease, unspecified; F17.210 Nicotine dependence, cigarettes, uncomplicated | CPT/HCPCS: 87635 ==

== ENCOUNTER → 2021-06-16 08:22 | Outpatient (BNVA) | payer MEDICARE, OTHER, SELFPAY | PROVIDERS: PCP Family Medicine; Visit Provider Psychiatry & Neurology Psychiatry | DX: F43.12 Post-traumatic stress disorder, chronic (principal); F31.81 Bipolar II disorder; F17.210 Nicotine dependence, cigarettes, uncomplicated; F12.21 Cannabis dependence, in remission; F10.21 Alcohol dependence, in remission | CPT/HCPCS: 99214 ==

== ENCOUNTER 2021-08-28 09:30 | Outpatient (CLI) | payer MEDICARE, SELFPAY ==
[2021-08-28 10:35] LABS: Basophils # 0.1 10^3/uL (0.0-0.1); Basophils % 0.7 %; Eosinophils # 0.6 10^3/uL (0.0-0.8); Eosinophils % 5.6 %; Hematocrit 41.9 % (37.0-47.0); Hemoglobin 13.9 g/dL (11.5-15.3); Lymphocytes % 30.6 %; Mean Corpuscular HGB Conc 33.2 g/dL (30.0-36.0); Mean Corpuscular Hemoglobin 28.5 pg (28.0-34.0); Mean Platelet Volume 10.7 fL (7.4-10.4); Monocytes # 0.8 10^3/uL (0.2-0.9); Monocytes % 7.6 %; Neutrophils # 5.42 10^3/uL (1.8-7.7); Neutrophils % 55.2 %; Nucleated Red Blood Cells % 0 %; Platelet Count 351 10^3/cmm (130-400); Red Blood Count 4.87 10^6/uL (4.1-5.3); Red Cell Distribution Width 13.4 % (12.1-15.1); White Blood Count 9.8 10^3/uL (4.0-10.0)
[2021-08-28 10:54] LABS: Erythrocyte Sedimentation Rate 37 mm/hr (0-15)
[2021-08-28 11:38] LABS: Alanine Aminotransferase 36 U/L (0-33); Albumin Level 4.4 g/dL (3.5-5.2); Alkaline Phosphatase 101 IU/L (35-105); Anion Gap 15.8 (5-19); Aspartate Amino Transferase 23 U/L (0-32); Blood Urea Nitrogen 11 mg/dL (6-20); C Reactive Protein 5.5 mg/L (0.0-4.9); Calcium 9.3 mg/dL (8.5-10.5); Carbon Dioxide 23 mmol/L (22-29); Chloride 102 mmol/L (98-107); Globulin 3.7 g/dL (1.3-4.6); Glomerular Filtration Rate 113.1 mL/min (90-130); Glucose 88 mg/dL (65-115); Osmolality Calculated 283 mOsm/kg (285-295); Potassium 3.8 mmol/L (3.5-5.1); Sodium 137 mmol/L (136-145); Total Bilirubin 0.3 mg/dL (0.15-1.2); Total Protein 8.1 g/dL (6.6-8.7)
[2021-08-28 12:05] LABS: Rapid Plasma Reagin Syphilis Nonreactive (Nonreactive)
[2021-09-02 03:22] LABS: Tissue Transglutaminse AB IGA <1.0 U/mL; Tissue Transglutaminse AB IGG <1.0 U/mL
[2021-09-04 16:03] LABS: Endomysial Antibody IGG SCREEN NEGATIVE
== END 2021-08-28 09:31 | disposition home or self-care (01) ==
LOC: LAB 09:32
PROVIDERS: PCP Family Medicine; Visit Provider Family Medicine
DX: L20.89 Other atopic dermatitis (principal); M13.0 Polyarthritis, unspecified; M79.671 Pain in right foot; M79.672 Pain in left foot; M79.641 Pain in right hand; M79.642 Pain in left hand
CPT/HCPCS: 83516; 36415; 80053; 85025; 85651; 86003; 86140; 86592

== ENCOUNTER → 2021-11-17 09:52 | Outpatient (BNVA) | payer SELFPAY | PROVIDERS: PCP Family Medicine; Visit Provider Family Medicine | DX: R30.0 Dysuria (principal); N39.0 Urinary tract infection, site not specified | CPT/HCPCS: 81000 ==

== ENCOUNTER → 2022-02-03 07:58 | Outpatient (BNVA) | payer MEDICARE, SELFPAY | PROVIDERS: PCP Family Medicine; Visit Provider Podiatrist Foot & Ankle Surgery | DX: L60.8 Other nail disorders (principal); L30.9 Dermatitis, unspecified | CPT/HCPCS: 99203 ==

== ENCOUNTER → 2022-02-16 10:28 | Outpatient (BNVA) | payer MEDICARE, SELFPAY | PROVIDERS: PCP Family Medicine; Visit Provider Family Medicine | DX: J32.9 Chronic sinusitis, unspecified (principal); J06.9 Acute upper respiratory infection, unspecified; J44.9 Chronic obstructive pulmonary disease, unspecified | CPT/HCPCS: 87071; 87426; 87880 ==

== ENCOUNTER 2022-06-04 14:27 | Emergency (ER) | payer MEDICARE, SELFPAY ==
[2022-06-04 14:39] VITALS: PULSE 89; RESP 14; TEMP 36.7; O2SAT 100; BMI 34.7
--- NOTE | 2022-06-04 14:46 | ECG_ITS ---
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 Measurements Intervals [place] Rate: 90 P: 43 ME: 201 QRS: -9 QRSD: 103 T: 61 QT: 377 QTc: 463 Interpretive Statements SINUS RHYTHM Compared to ECG 06/11/2020 11:16:30 No significant changes Electronically Signed On 06-04-2022 23:17:03 CROP NUTRITION SCIENTIST by Sariah Velazquez M.D. [id number] f
--- NOTE | 2022-06-04 14:54 | XR_ITS ---
WS: [id number] Portable AP upright chest, 06/04/2022 Clinical Data: chest pain Comparison: Two-view chest, 01/08/2021 Findings: No nodules, masses or effusions are seen. The heart is normal. The pulmonary vascularity is not increased. No pneumonia or pneumothorax is seen. There are monitor leads on the chest wall. XR/XR chest 1V portable [id number] Impression: Negative chest.
--- NOTE | 2022-06-04 14:58 | ECG_ITS ---
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 Measurements Intervals [place] Rate: 90 P: 43 [place]: 201 QRS: -9 QRSD: 103 T: 61 QT: 377 QTc: 463 Interpretive Statements SINUS RHYTHM Compared to ECG 06/11/2020 11:16:30 No significant changes Electronically Signed On 06-04-2022 16:43:21 POLICY ADVISER by Sariah Velazquez M.D. [id number] f
--- NOTE | 2022-06-04 14:58 | PC.PHAR ---
PT STATES SHE TAKES CARE OF HER OWN MEDICATIONS-PT STATES SHE GETS HER MEDS FROM MAIL ORDER AND IT COMES IN PILL PACKS-PT STATES SHE TAKES THE MEDICATIONS ENTERED LAST DATES FILLED IN PHARMACY COMMENTS
--- NOTE | 2022-06-04 15:41 | ED_ITS ---
HPI - Chest Pain General: Chief Complaint: Chest Pain Stated Complaint: chest pain Time Seen by Provider: 06/04/22 14:43 Source: patient Mode of arrival: ambulatory History of Present Illness: 37-year-old female presents emergency room clinic chest pain that began this afternoon worse when she takes a deep breath and radiates into her left arm cramps and heaviness. She does get some shortness of breath with exertion. No vomiting no diaphoresis. No known history of coronary artery disease. No fever sweats or chills no productive cough MD complaint: chest pain Onset (ago): minute(s) Timing of current episode: episodic Prior episodes: Yes Onset: during rest Pain location: left chest Pain radiation: none Severity: mild Quality: heaviness Relieving factors: nothing Exacerbating factors: palpation Associated symptoms: Deny abdominal pain, diaphoresis, dyspnea, fever(s), leg edema, nausea, palpitations, sense of impending doom, syncope or vomiting Treatment prior to arrival: none Review of Systems Const: Denies: fever(s) or diaphoresis ENMT: Denies: throat pain, ear or mastoid pain, nasal discharge or nasal congestion Card: Denies: palpitations or syncope Resp: Denies: dyspnea GI: Denies: abdominal pain, nausea or vomiting : Denies: flank pain, difficulty voiding, dysuria, urinary frequency or urinary urgency Skin/Breast: Denies: rash or pruritus PFSH ED PFSH: Medical History Anxiety DDD (degenerative disc disease), lumbar Depression, controlled Fibromyalgia Headache disorder Insomnia, psychophysiological Nonspecific vaginitis RADHA (obstructive sleep apnea) Psychiatric care Supraventricular tachycardia Surgical History H/O: hysterectomy History of adenoidectomy History of bilateral breast reduction surgery History of cholecystectomy Family History Other CAD (coronary artery disease) Cancer Hypertension Social History Smoking and tobacco status: current every day smoker cigarettes Packs smoked per day: 0.5 Years cigarettes smoked: 18 Quit status (tobacco): has tried quititng Number of times tried to quit tobacco: 3 Second hand smoke exposure: Yes Smoking risk assessment/counseling performed?: No Alcohol intake: former Desire information about alcohol rehabilitation?: No Counseling given: No Desire information about substance/drug rehabilitation?: No Counseling given: No Current gender identity: Female Physical Exam Const: GENERAL APPEARANCE: cooperative and comfortable ORIENTATION/CONSCIOUSNESS: Yes awake, Yes oriented to person, Yes oriented to place and Yes oriented to time HENMT: COMMON NORMALS: normocephalic, atraumatic and hearing grossly normal bilaterally HEAD & SCALP: normocephalic and atraumatic Resp: COMMON NORMALS: normal respiratory effort, No retractions, No use of a ccessory muscles and clear to auscultation bilaterally AUSCULTATION: clear to auscultation bilaterally Cardio: COMMON NORMALS: regular rate, regular rhythm and No murmurs present (Cardio) RATE: regular rate RHYTHM: regular rhythm GI: COMMON NORMALS: Soft to palpation and No hepatosplenomegaly present AUSCULTATION: Yes normoactive bowel sounds PALPATION: Yes Soft to palpation, No Tenderness to palpation present (GI), No Guarding due to palpation present (GI) and Yes No hepatosplenomegaly present Extremity: COMMON NORMALS: normal to inspection, capillary refill normal, no clubbing, cyanosis or edema, no calf tenderness and no pedal edema Neuro: SENSORIUM/ORIENTATION: Yes oriented to person, Yes oriented to place and Yes oriented to time Skin: COMMON NORMALS: no rashes or lesions noted GENERAL SKIN EXAM: no rashes or lesions noted Course Vital Signs: Vital signs: Vital Signs Temperature 98.0 F 06/04/22 14:39 Pulse Rate 89 06/04/22 14:39 Respiratory Rate 14 06/04/22 14:39 Pulse Oximetry 100 06/04/22 14:39 Oxygen Delivery Me thod 06/04/22 14:39 MDM - Chest Pain Medical Decision Making Labs imaging and EKG reviewed as found in the chart. Chest pain is reproduced with palpation and deep breath no acute EKG changes. Labs reviewed discussed with the patient discharged home supportive care. Chest pain noncardiac in nature no evidence of pneumonia pneumothorax PE or PE Medical Records I reviewed the patient's medical records. Lab Data I reviewed the patient's lab results. 06/04/22 15:39 06/04/22 15:38 Radiology Impressions Chest X-Ray 06/04/22 14:54 Impression: Negative chest. Laboratory Results WBC 12.6 10^3/uL (4.0-10.0) H 06/04/22 15:39 RBC 4.62 10^6/uL (4.1-5.3) 06/04/22 15:39 Hgb 13.4 g/dL (11.5-15.3) 06/04/22 15:39 Hct 41.2 % (37.0-47.0) 06/04/22 15:39 MCV 89.2 fl (81-99) 06/04/22 15:39 MCH 29.0 pg (28.0-34.0) 06/04/22 15:39 MCHC 32.5 g/dL (30.0-36.0) 06/04/22 15:39 RDW 13.3 % (12.1-15.1) 06/04/22 15:39 Plt Count 304 10^3/cmm (130-400) 06/04/22 15:39 MPV 10.4 fL (7.4-10.4) 06/04/22 15:39 Neut % (Auto) 59.1 % 06/04/22 15:39 Lymph % (Auto) 29.1 % 06/04/22 15:39 Power % (Auto) 7.8 % 06/04/22 15:39 Eos % (Auto) 3.2 % 06/04/22 15:39 Baso % (Auto) 0.5 % 06/04/22 15:39 Neut # (Auto) 7.46 10^3/uL (1.8-7.7) 06/04/22 15:39 Lymph # (Auto) 3.7 10^3/uL (0.8-4.8) 06/04/22 15:39 Power # (Auto) 1.0 10^3/uL (0.2-0.9) H 06/04/22 15:39 Eos # (Auto) 0.4 10^3/uL (0.0-0.8) 06/04/22 15:39 Baso # (Auto) 0.1 10^3/uL (0.0-0.1) 06/04/22 15:39 Nucleated RBC % (auto) 0 % 06/04/22 15:39 Nucleated RBCs # 0.0 /100WBC 06/04/22 15:39 Sodium 139 mmol/L (136-145) 06/04/22 15:38 Potassium 3.9 mmol/L (3.5-5.1) 06/04/22 15:38 Chloride 104 mmol/L (98-107) 06/04/22 15:38 Carbon Dioxide 23 mmol/L (22-29) 06/04/22 15:38 Anion Gap 15.9 (5-19) 06/04/22 15:38 BUN 15 mg/dL (6-20) 06/04/22 15:38 Creatinine 0.7 mg/dL (0.5-0.9) 06/04/22 15:38 GFR Calculation 94.2 mL/min (90-130) 06/04/22 15:38 Glucose 84 mg/dL (65-115) 06/04/22 15:38 Calculated Osmolality 288 mOsm/kg (285-295) 06/04/22 15:38 Calcium 8.9 mg/dL (8.5-10.5) 06/04/22 15:38 Total Bilirubin 0.2 mg/dL (0.15-1.2) 06/04/22 15:38 AST 27 U/L (0-32) 06/04/22 15:38 ALT 59 U/L (0-33) H 06/04/22 15:38 Alkaline Phosphatase 98 U/L (35-105) 06/04/22 15:38 Troponin T Baseline 6 ng/L (0-10) 06/04/22 15:38 Total Protein 6.8 g/dL (6.6-8.7) 06/04/22 15:38 Albumin 4.1 g/dL (3.5-5.2) 06/04/22 15:38 Globulin 2.7 g/dL (1.3-4.6) 06/04/22 15:38 Discharge Plan Discharge Patient Disposition: Home Clinical Impression: Viral URI with cough, Laryngitis, Pleuritic chest pain Condition: Stable Prescriptions: New diclofenac sodium 75 mg tablet,delayed release (DR/EC) 75 mg PO Q12H PRN (Reason: pain) Qty: 20 0RF albuterol sulfate 90 mcg/actuation HFA aerosol inhaler 2 inh INHALATION Q4H PRN (Reason: shortness of breath or wheezing) Qty: 18 0RF No Action Trelegy Ellipta 200-62.5-25 mcg blister with device 1 inh inhalation DAILY fluticasone propionate [Flonase Allergy Relief] 50 mcg/actuation spray,suspension 2 spray intranasal DAILY Qty: 16 0RF Rx Instructions: administer into each nostril buspirone 10 mg tablet 10 mg PO TID Qty: 90 2RF ziprasidone HCl 20 mg capsule 40 mg PO BID 30 Days Qty: 120 2RF trazodone 50 mg tablet 100 mg PO BEDTIME 30 Days Qty: 60 2RF lamotrigine [Lamictal] 25 mg tablet 50 mg PO BID Qty: 120 2RF escitalopram oxalate 10 mg tablet 10 mg PO DAILY Qty: 30 2RF albuterol sulfate 90 mcg/actuation HFA aerosol inhaler 2 puff inhalation Q6H PRN (Reason: shortness of breath or wheezing) Qty: 8.5 0RF [place] Plus Powermax Gel 2 cap PO .ONCE Benadryl 25 mg Capsule 25 - 50 mg PO Q6H PRN (Reason: Allergy Symptoms) pantoprazole 40 mg tablet,delayed release (DR/EC) 40 mg PO DAILY@09 montelukast 10 mg tablet 10 mg PO DAILY@17 Discharge Orders: Discharge ED (Routine); Ordered 06/04/22 Ordered By: Lewis Londono Referrals: Velasquez Astorga DO [Primary Care Provider] - Discharge Diet: Usual diet Discharge Activity: Increase activity as tolerated Patient Instructions: Opioid Safety, Pain Management Activity Restrictions/Additional Instructions: You are seen today for viral pressure infection cough and pleuritic chest pain. We will start her on anti-inflammatories 1 p.o. every 12 hours as needed also gave you a refill of your albuterol follow-up with primary care if not improving. Coding Level of Care Code ED Child And Adolescent Psychologist for Yolanda Almazan
[2022-06-04 16:07] LABS: Alanine Aminotransferase 59 U/L (0-33); Albumin Level 4.1 g/dL (3.5-5.2); Alkaline Phosphatase 98 U/L (35-105); Anion Gap 15.9 (5-19); Aspartate Amino Transferase 27 U/L (0-32); Blood Urea Nitrogen 15 mg/dL (6-20); Calcium 8.9 mg/dL (8.5-10.5); Carbon Dioxide 23 mmol/L (22-29); Chloride 104 mmol/L (98-107); Globulin 2.7 g/dL (1.3-4.6); Glomerular Filtration Rate 94.2 mL/min (90-130); Glucose 84 mg/dL (65-115); Osmolality Calculated 288 mOsm/kg (285-295); Potassium 3.9 mmol/L (3.5-5.1); Sodium 139 mmol/L (136-145); Total Bilirubin 0.2 mg/dL (0.15-1.2); Total Protein 6.8 g/dL (6.6-8.7)
[2022-06-04 16:08] LABS: Troponin(5th) Baseline 6 ng/L (0-10)
[2022-06-04 17:25] LABS: Basophils # 0.1 10^3/uL (0.0-0.1); Basophils % 0.5 %; Eosinophils # 0.4 10^3/uL (0.0-0.8); Eosinophils % 3.2 %; Hematocrit 41.2 % (37.0-47.0); Hemoglobin 13.4 g/dL (11.5-15.3); Lymphocytes # 3.7 10^3/uL (0.8-4.8); Lymphocytes % 29.1 %; Mean Corpuscular HGB Conc 32.5 g/dL (30.0-36.0); Mean Corpuscular Volume 89.2 fl (81-99); Mean Platelet Volume 10.4 fL (7.4-10.4); Monocytes % 7.8 %; Neutrophils # 7.46 10^3/uL (1.8-7.7); Neutrophils % 59.1 %; Nucleated Red Blood Cells % 0 %; Platelet Count 304 10^3/cmm (130-400); Red Blood Count 4.62 10^6/uL (4.1-5.3); Red Cell Distribution Width 13.3 % (12.1-15.1); White Blood Count 12.6 10^3/uL (4.0-10.0)
== END 2022-06-04 17:58 | disposition home or self-care (01) ==
PROVIDERS: Emergency Provider Family Medicine; PCP Family Medicine
DX: J06.9 Acute upper respiratory infection, unspecified (principal); J04.0 Acute laryngitis; R09.1 Pleurisy; F17.210 Nicotine dependence, cigarettes, uncomplicated
CPT/HCPCS: 36415; 71045; 80053; 84484; 85025; 93005; 99285

== ENCOUNTER 2022-07-07 11:01 | Emergency (ER) | payer MEDICARE, SELFPAY ==
[2022-07-07 11:04] VITALS: BP 147/103; PULSE 105; RESP 16; TEMP 36.7; O2SAT 99
--- NOTE | 2022-07-07 11:09 | W.ED.EXTPRO ---
HPI - Extremity Problem General: Chief complaint: Extremity Injury, Lower Stated complaint: left knee pain Time Seen by Provider: 07/07/22 11:03 Source: patient Mode of arrival: ambulatory Limitations: no limitations History of Present Illness: Patient is a 37-year-old female presents to ED today for evaluation of left knee pain over the past 3 days. Patient states pain is located to her posterior knee and describes it as a burning sensation that extends down into her calf. She feels like she has noticed swelling as well. Patient initially reports no injury or trauma but then later states the day before symptoms started she was at a chiropractor office who did some type of ankle and hip manipulation and thinks maybe this could have aggravated her knee. She is able to ambulate on the extremity. She has not noticed any redness or warmth to the joint. She denies color/temperature changes to her extremity. Denies numbness, tingling, loss of sensation to the leg. MD Complaint: joint swelling and joint pain Onset (ago): day(s) Pain Consistency: constant Location: left and knee Quality: burning Radiation: distal Relieving factors: immobilization Exacerbating factors: range of motion, weight bearing, walking and palpation Associated symptoms: Reports no associated symptoms; Deny chest pain, fever(s) or rash Review of Systems Const: Denies: fever(s), chills, body aches, fatigue or malaise Card: Denies: chest pain Resp: Denies: dyspnea Musc: Reports: joint pain (L knee) and joint swelling (L knee); Denies: neck pain, back pain, extremity swelling, joint redness or joint warmth Skin/Breast: Denies: rash Neuro: Denies: numbness in extremities, weakness in extremities or sensory changes PFSH ED PFSH: Medical History Anxiety DDD (degenerative disc disease), lumbar Depression, controlled Fibromyalgia Headache disorder Insomnia, psychophysiological Nonspecific vaginitis RADHA (obstructive sleep apnea) Psychiatric care Supraventricular tachycardia Surgical History H/O: hysterectomy History of adenoidectomy History of bilateral breast reduction surgery History of cholecystectomy Family History Other CAD (coronary artery disease) Cancer Hypertension Social History Smoking and tobacco status: current every day smoker cigarettes Packs smoked per day: 0.5 Years cigarettes smoked: 18 Quit status (tobacco): has tried quititng Number of times tried to quit tobacco: 3 Second hand smoke exposure: Yes Smoking risk assessment/counseling performed?: No Alcohol intake: former Desire information about alcohol rehabilitation?: No Counseling given: No Desire information about substance/drug rehabilitation?: No Counseling given: No Current gender identity: Female Physical Exam Const: COMMON NORMALS: no acute distress, patient oriented x3, no limitations, alert and well nourished Resp: COMMON NORMALS: normal respiratory effort and clear to auscultation bilaterally AUSCULTATION: clear to auscultation bilaterally Cardio: COMMON NORMALS: regular rate and regular rhythm RATE: regular rate RHYTHM: regular rhythm Extremity: COMMON NORMALS: capillary refill normal and no clubbing, cyanosis or edema GENERAL: Yes normal exam except as noted LEFT LOWER EXTREMITY: Yes knee joint (TTP posteriorly; mild swelling noted; calf tenderness w/o swelling) Left knee: Yes ROM (normal but painful) and Yes neurovascular exam (normal) Neuro: COMMON NORMALS: patient oriented x3, moves all extremities, no focal motor deficits and no sensory deficits noted SENSORIUM/ORIENTATION: Yes alert Skin: COMMON NORMALS: no rashes or lesions noted GENERAL SKIN EXAM: no rashes or lesions noted Course Vital Signs: Vital signs: Vital Signs Temperature 98.1 F 07/07/22 11:04 Pulse Rate 105 H 07/07/22 11:04 Respiratory Rate 16 07/07/22 11:04 Blood Pressure 147/103 07/07/22 11:04 Pulse Oximetry 99 07/07/22 11:04 Oxygen Delivery Me thod 07/07/22 11:04 MDM - Extremity (Nontraumatic) Medical Decision Making Patient's ultrasound is negative for DVT or Suazo's cyst/aneurysm. I do not think an XR would be overly beneficial at this time. We will place an ROBBY wrap, crutches, weightbearing as tolerated, RICE therapy and recommend follow-up with her primary care her scheduled appointment in 2 weeks. Discharge Plan Discharge Patient Disposition: Home Clinical Impression: Left knee pain Qualifiers: Chronicity: acute Qualified Code(s): M25.562 - Pain in left knee Condition: Stable Prescriptions: No Action Trelegy Ellipta 200-62.5-25 mcg blister with device 1 inh inhalation DAILY fluticasone propionate [Flonase Allergy Relief] 50 mcg/actuation spray,suspension 2 spray intranasal DAILY Qty: 16 0RF Rx Instructions: administer into each nostril tizanidine 4 mg tablet 4 mg PO BID PRN (Reason: muscle spasticity) Qty: 30 2RF buspirone 10 mg tablet 10 mg PO TID Qty: 90 2RF ziprasidone HCl 20 mg capsule 40 mg PO BID 30 Days Qty: 120 2RF trazodone 50 mg tablet 100 mg PO BEDTIME 30 Days Qty: 60 2RF lamotrigine [Lamictal] 25 mg tablet 50 mg PO BID Qty: 120 2RF escitalopram oxalate 10 mg tablet 10 mg PO DAILY Qty: 30 2RF albuterol sulfate 90 mcg/actuation HFA aerosol inhaler 2 puff inhalation Q6H PRN (Reason: shortness of breath or wheezing) Qty: 8.5 0RF montelukast 10 mg tablet See Rx Instructions .ROUTE .COMPLEX Qty: 90 1RF Dose Instruction: TAKE ONE TABLET BY MOUTH DAILY AT 5PM Rx Instructions: TAKE ONE TABLET BY MOUTH DAILY AT 5PM pantoprazole 40 mg tablet,delayed release (DR/EC) See Rx Instructions .ROUTE .COMPLEX Qty: 90 1RF Dose Instruction: TAKE ONE TABLET BY MOUTH DAILY AT 9AM Rx Instructions: TAKE ONE TABLET BY MOUTH DAILY AT 9AM Estela Tynan Plus Powermax Gel 2 cap PO .ONCE Benadryl 25 mg Capsule 25 - 50 mg PO Q6H PRN (Reason: Allergy Symptoms) diclofenac sodium 75 mg tablet,delayed release (DR/EC) 75 mg PO Q12H PRN (Reason: pain) Qty: 20 0RF albuterol sulfate 90 mcg/actuation HFA aerosol inhaler 2 inh INHALATION Q4H PRN (Reason: shortness of breath or wheezing) Qty: 18 0RF Discharge Orders: Discharge ED (Routine); Ordered 07/07/22 Ordered By: Laura Diaz Referrals: Velasquez Astorga DO [Primary Care Provider] - Patient Instructions: RICE Therapy Stand Alone Forms: Work/School Release Coding Level of Care Code ED 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
--- NOTE | 2022-07-07 11:19 | USCV_ITS ---
Caroline Huitron Age: 37 Gender: F : 1985 Exam Date: 07/07/2022 11:58 Ordering Phys: Laura Diaz Technologist: CT Exam Location: [facility] [place]_ Indication: PROCEDURES: Venous duplex imaging was performed in only the left lower extremity. The following venous structures were evaluated: common femoral vein, profunda vein, proximal portion of the greater saphenous vein, superficial femoral vein, and the popliteal vein. In addition, the posterior tibial and peroneal trunk were evaluated. On the left side, the common femoral, superficial femoral, profunda femoral, popliteal, posterior tibial, greater saphenous veins, and the peroneal trunk were identified and interrogated in the standard fashion. These veins were found to be easily compressible with spontaneous blood flow. No evidence of insufficiency or thrombus noted. CONCLUSIONS No evidence of left lower extremity DVT. Darius Betts MD (Electronically Signed) Final Date: 07 July 2022 17:47 S
[2022-07-07 13:08] VITALS: BP 137/92; PULSE 92; O2SAT 99
== END 2022-07-07 12:50 | disposition home or self-care (01) ==
PROVIDERS: Emergency Provider Physician Assistant; PCP Family Medicine
DX: M25.562 Pain in left knee (principal); F17.210 Nicotine dependence, cigarettes, uncomplicated
CPT/HCPCS: 93971; 99284

== ENCOUNTER → 2022-07-25 11:13 | Outpatient (BNVA) | payer MEDICARE, SELFPAY | PROVIDERS: PCP Family Medicine; Visit Provider Nurse Practitioner | DX: R39.9 Unspecified symptoms and signs involving the genitourinary system (principal); N12 Tubulo-interstitial nephritis, not specified as acute or chronic | CPT/HCPCS: 81000; 87086 ==

== ENCOUNTER → 2022-08-18 11:34 | Outpatient (BNVA) | payer MEDICARE, SELFPAY | PROVIDERS: PCP Family Medicine; Visit Provider Family Medicine | DX: M13.0 Polyarthritis, unspecified (principal); M25.50 Pain in unspecified joint | CPT/HCPCS: 84550; 85651; 86038; 86140; 86200; 86431 ==

== ENCOUNTER → 2022-09-23 09:38 | Outpatient (BNVA) | payer MEDICARE, SELFPAY | PROVIDERS: PCP Family Medicine; Visit Provider Family Medicine | DX: M13.0 Polyarthritis, unspecified (principal); R76.8 Other specified abnormal immunological findings in serum | CPT/HCPCS: 86160; 86162; 86235; 86255; 86376 ==

== ENCOUNTER → 2022-09-28 08:44 | Outpatient (BNVA) | payer MEDICARE, SELFPAY | PROVIDERS: PCP Family Medicine; Referring Provider Family Medicine; Visit Provider Obstetrics & Gynecology | DX: R10.11 Right upper quadrant pain (principal); R35.0 Frequency of micturition; N32.81 Overactive bladder | CPT/HCPCS: 81000; 87086 ==

== ENCOUNTER 2022-10-17 10:19 | Emergency (ER) | payer MEDICARE, SELFPAY ==
[2022-10-17 10:39] VITALS: BP 153/113; PULSE 88; RESP 20; TEMP 36.9; O2SAT 100
--- NOTE | 2022-10-17 11:00 | XRR_ITS ---
PROCEDURE INFORMATION: Exam: XR Chest Exam date and time: 10/17/2022 11:06 AM Age: 37 years old Clinical indication: Dyspnea TECHNIQUE: Imaging protocol: Radiologic exam of the chest. Views: 1 view. COMPARISON: CR XR chest 1V portable [id number] 06/04/2022 3:02 PM FINDINGS: Lungs: No acute airspace disease. Pleural spaces: No pleural effusion. Heart/Mediastinum: Normal configuration of the heart. Bones/joints: Unremarkable. XR/XR chest 1V portable [id number] IMPRESSION: No acute airspace disease.
--- NOTE | 2022-10-17 11:12 | ED_ITS ---
HPI - SOB/Dyspnea General: Chief Complaint: Shortness of Breath/Dyspnea Stated Complaint: asthma attack Time Seen by Provider: 10/17/22 10:21 History of Present Illness: HPI Narrative: Patient states she is having shortness of breath and with asthma attack. This started yesterday when she was cleaning out a shed. Patient has tried using her home inhalers but they have not been helping. Patient states she is not able to move a whole lot of air. Patient has had this happen before but usually inhalers help. Patient denies any fever chills patient does have a history of asthma. Review of Systems 2 General: Reports: 10 or more systems reviewed and unremarkable except in HPI and below PFSH ED PFSH: Medical History Anxiety DDD (degenerative disc disease), lumbar Depression, controlled Fibromyalgia Headache disorder Insomnia, psychophysiological Nonspecific vaginitis RADHA (obstructive sleep apnea) Psychiatric care Supraventricular tachycardia Surgical History H/O: hysterectomy History of adenoidectomy History of bilateral breast reduction surgery History of cholecystectomy Family History Other Cancer Hypertension Denies family history of Colon cancer Ovarian cancer Diabetes Heart disease Hypercholesteremia Breast cancer Uterine cancer Thyroid disease Stroke Physical Exam Const: COMMON NORMALS: no acute distress, average body habitus, patient oriented x3, no limitations, healthy appearing, alert and well nourished HENMT: COMMON NORMALS: normocephalic, atraumatic, hearing grossly normal bilaterally, external ears normal, Normal external nose present and moist oral mucous membranes HEAD & SCALP: normocephalic and atraumatic NOSE: Normal external nose present EXTERNAL EAR: Yes external ears normal Eye: COMMON NORMALS: Equal, round and reactive pupils present, EOMs intact bilaterally, conjunctivae normal and no scleral icterus CONJUNCTIVA: Yes conjunctivae normal PUPIL: Yes Equal, round and reactive pupils present Neck/C-Spine: COMMON NORMALS: full ROM, no lymphadenopathy, supple, no meningeal signs, no JVD and Thyroid normal THYROID: Thyroid normal Chest: COMMONS NORMALS: normal inspection of the chest and normal palpation of entire chest wall Resp: COMMON NORMALS: normal respiratory effort, No retractions, No use of accessory muscles and clear to auscultation bilaterally AUSCULTATION: clear to auscultation bilaterally and diminished lung sounds Cardio: COMMON NORMALS: no JVD, regular rate, regular rhythm, S1 normal heart sound present, S2 normal heart sound present, No gallops present (Cardio), No clicks present (Cardio) and No murmurs present (Cardio) RATE: regular rate RHYTHM: regular rhythm HEART SOUNDS: S1 normal heart sound present and S2 normal heart sound present GI: COMMON NORMALS: Normal to inspection, nondistended, normoactive bowel sounds present, Soft to palpation, non-tender, No hepatosplenomegaly present and no masses PALPATION: Yes Soft to palpation and Yes No hepatosplenomegaly present Neuro: COMMON NORMALS: patient oriented x3 SENSORIUM/ORIENTATION: Yes alert MENINGEAL SIGNS: Yes no meningeal signs Course Vital Signs: Vital signs: Vital Signs Temperature 98.5 F 10/17/22 10:39 Pulse Rate 88 10/17/22 12:16 Respiratory Rate 18 10/17/22 11:25 Blood Pressure 158/101 10/17/22 12:16 Pulse Oximetry 99 10/17/22 12:16 Oxygen Delivery Me thod Room Air 10/17/22 12:16 MDM - SOB/Dyspnea Medical Decision Making Presents to the ER complaining of shortness of breath and asthma attack. Patient's voice is a little altered secondary to tightness and she is not moving good air volume. But she is satting 100% on room air. X-ray was obtained patient was given 1 Xopenex breathing treatment which improved her much patient was also given 10 mg Decadron IM. Patient be given 1 more breathing treatment of Xopenex and sent home on some prednisone. Differential Diagnosis Likely asthma with exacerbation; Unlikely acute exacerbation of chronic obstructive airways disease, congestive heart failure, community acquired pneumonia or pulmonary embolism Medical Records I reviewed the patient's medical records. Lab Data I reviewed the patient's lab results. Labs/Radiology: Radiology Impressions Chest X-Ray 10/17/22 11:00 IMPRESSION: No acute airspace disease. Discharge Plan Discharge Patient Disposition: Home Clinical Impression: Asthma Condition: Stable Prescriptions: New prednisone 50 mg tablet 50 mg PO DAILY 3 Days Qty: 3 0RF No Action fluticasone propionate [Flonase Allergy Relief] 50 mcg/actuation spra y,suspension 2 spray intranasal DAILY Qty: 16 0RF Rx Instructions: administer into each nostril tizanidine 4 mg tablet 4 mg PO BID PRN (Reason: muscle spasticity) Qty: 30 2RF oxybutynin chloride 5 mg tablet extended release 24hr 5 mg PO DAILY Qty: 30 0RF Rx Instructions: not started as of 10/17/22 meloxicam 15 mg tablet 15 mg PO DAILY Qty: 30 5RF Trelegy Ellipta 200-62.5-25 mcg blister with device 1 inh inhalation DAILY Qty: 60 5RF buspirone 10 mg tablet 10 mg PO TID Qty: 90 2RF ziprasidone HCl 20 mg capsule 40 mg PO BID 30 Days Qty: 120 2RF trazodone 50 mg tablet 100 mg PO BEDTIME 30 Days Qty: 60 2RF lamotrigine [Lamictal] 25 mg tablet 50 mg PO BID Qty: 120 2RF escitalopram oxalate 10 mg tablet 10 mg PO DAILY Qty: 30 2RF albuterol sulfate 90 mcg/actuation HFA aerosol inhaler 2 puff inhalation Q6H PRN (Reason: shortness of breath or wheezing) Qty: 8.5 0RF diphenhydramine HCl [Benadryl] 25 mg Capsule 25 - 50 mg PO Q6H PRN (Reason: Allergy Symptoms) pantoprazole 40 mg tablet,delayed release (DR/EC) 40 mg PO DAILY@09 montelukast 10 mg tablet 10 mg PO DAILY@17 Discharge Orders: Discharge ED (Routine); Ordered 10/17/22 Ordered By: Jose Roberto Maya Referrals: Velasquez Astorga DO [Primary Care Provider] - 1 week Patient Instructions: Asthma (ED) Activity Restrictions/Additional Instructions: Take the prednisone as directed. Please use your inhalers as previously directed. Please follow-up with your family practice doctor in the next 7 to 10 days as needed. Coding Level of Care Code ED Side Seam Envelope Machine Operator for Yolanda Almazan
[2022-10-17] MEDS: dexamethasone 10 mg/mL INJ IM (11:18)
[2022-10-17 11:25] VITALS: PULSE 74; RESP 18; O2SAT 98
[2022-10-17] MEDS: levalbuterol 1.25 mg/3 mL Neb INHALATION ×2 (11:28→13:03)
--- NOTE | 2022-10-17 11:28 | PC.PHAR ---
pt states she takes care of her own medications-pt states she takes the medications entered and gets [facility] from [facility] [phone] -[facility] not open on sundays to verify when last filled and dose
[2022-10-17 12:16] VITALS: BP 158/101; PULSE 88; O2SAT 99
[2022-10-17 13:03] VITALS: PULSE 88; RESP 18; O2SAT 98
[2022-10-17 13:17] VITALS: O2SAT 100
== END 2022-10-17 13:18 | disposition home or self-care (01) ==
PROVIDERS: Emergency Provider Emergency Medicine; PCP Family Medicine
DX: J45.909 Unspecified asthma, uncomplicated (principal)
CPT/HCPCS: 71045; 94640; 96372; 99284; J1100; J7614

== ENCOUNTER 2022-11-18 14:06 | Outpatient (RCR) | payer MEDICARE, SELFPAY | END 2022-12-16 23:59 | disposition home or self-care (01) | LOC: SPT 14:06 | PROVIDERS: Visit Provider Obstetrics & Gynecology | DX: N39.46 Mixed incontinence (principal) | CPT/HCPCS: 97161 ==

== ENCOUNTER 2022-12-06 18:05 | Emergency (ER) | payer MEDICARE, SELFPAY ==
[2022-12-06 18:58] VITALS: BMI 35.8
[2022-12-06 19:02] VITALS: BP 143/101; PULSE 88; RESP 18; TEMP 36.8; O2SAT 98
--- NOTE | 2022-12-06 20:56 | W.ED.HA ---
HPI - Headache General: Chief Complaint: Headache Stated Complaint: headache Time Seen by Provider: 12/06/22 20:50 History of Present Illness: 37-year-old female comes in with migraine starting this morning about 4:00. Patient reports that its been a long time since her last migraine. Patient reports that it is no worse than her usual migraines. Patient appears in mild to moderate pain and nontoxic. Review of Systems General: Reports: 10 or more systems reviewed and unremarkable except in HPI and below Neuro: Reports: headache(s) PFSH ED PFSH: Medical History Anxiety DDD (degenerative disc disease), lumbar Depression, controlled Fibromyalgia Headache disorder Insomnia, psychophysiological Nonspecific vaginitis RADHA (obstructive sleep apnea) Psychiatric care Supraventricular tachycardia Surgical History H/O: hysterectomy History of adenoidectomy History of bilateral breast reduction surgery History of cholecystectomy Family History Other Cancer Hypertension Denies family history of Colon cancer Ovarian cancer Diabetes Heart disease Hypercholesteremia Breast cancer Uterine cancer Thyroid disease Stroke Physical Exam Const: COMMON NORMALS: alert HENMT: COMMON NORMALS: normocephalic HEAD & SCALP: normocephalic Neck/C-Spine: COMMON NORMALS: full ROM Resp: COMMON NORMALS: normal respiratory effort Cardio: COMMON NORMALS: regular rate RATE: regular rate GI: COMMON NORMALS: non-tender Extremity: COMMON NORMALS: normal to inspection and no pedal edema Neuro: SENSORIUM/ORIENTATION: Yes alert Skin: COMMON NORMALS: turgor normal GENERAL SKIN EXAM: turgor normal Course Vital Signs: Vital signs: Vital Signs Temperature 98.3 F 12/06/22 19:02 Pulse Rate 75 12/06/22 21:20 Respiratory Rate 20 H 12/06/22 21:20 Blood Pressure 142/105 12/06/22 21:20 Pulse Oximetry 100 12/06/22 21:20 Oxygen Delivery Me thod Room Air 12/06/22 21:20 MDM - Headache Medical Decision Making Patient presents with migraine headache. On exam patient appears nontoxic. Skin turgor is normal. Patient moves all extremities well. No focal neural deficits is noted. No meningeal signs are noted. Differential diagnosis includes but not limited to migraine headache, classic headache, uncontrolled hypertension. Patient was medicated with a headache cocktail of diphenhydramine, Reglan, ketorolac, and dexamethasone. Patient had resolution of headache. Patient was discharged home with recommendations for follow-up with primary care. Discharge Plan Discharge Patient Disposition: Home Clinical Impression: Migraine Qualifiers: Migraine type: unspecified Status migrainosus presence: without status migrainosus Intractability: not intractable Qualified Code(s): G43.909 - Migraine, unspecified, not intractable, without status migrainosus Condition: Stable Prescriptions: No Action fluticasone propionate [Flonase Allergy Relief] 50 mcg/actuation spray,suspension 2 spray intranasal DAILY Qty: 16 0RF Rx Instructions: administer into each nostril tizanidine 4 mg tablet 4 mg PO BID PRN (Reason: muscle spasticity) Qty: 30 2RF oxybutynin chloride 5 mg tablet extended release 24hr 5 mg PO DAILY Qty: 30 0RF Rx Instructions: not started as of 10/17/22 meloxicam 15 mg tablet 15 mg PO DAILY Qty: 30 5RF Trelegy Ellipta 200-62.5-25 mcg blister with device 1 inh inhalation DAILY Qty: 60 5RF buspirone 10 mg tablet 10 mg PO TID Qty: 90 2RF lamotrigine [Lamictal] 25 mg tablet 50 mg PO BID Qty: 120 2RF escitalopram oxalate 10 mg tablet 10 mg PO DAILY Qty: 30 2RF trazodone 50 mg tablet 100 mg PO BEDTIME 30 Days Qty: 60 2RF ziprasidone HCl 20 mg capsule 40 mg PO BID 30 Days Qty: 120 2RF albuterol sulfate 90 mcg/actuation HFA aerosol inhaler 2 puff inhalation Q6H PRN (Reason: shortness of breath or wheezing) Qty: 8.5 0RF diphenhydramine HCl [Benadryl] 25 mg Capsule 25 - 50 mg PO Q6H PRN (Reason: Allergy Symptoms) pantoprazole 40 mg tablet,delayed release (DR/EC) 40 mg PO DAILY@09 montelukast 10 mg tablet 10 mg PO DAILY@17 Discharge Orders: Discharge ED (Routine); Ordered 12/06/22 Ordered By: Michael Jernigan Referrals: Velasquez Astorga, [Primary Care Provider] - Discharge Diet: Usual diet Discharge Activity: Increase activity as tolerated Patient Instructions: Migraine Headache (ED) Activity Restrictions/Additional Instructions: Take medications as directed. Drink plenty of water and fluids. Follow-up with primary care for further instructions. Coding Level of Care Code ED Sandblaster Paint Sprayer for Yolanda Almazan
[2022-12-06] MEDS: diphenhydrAMINE 50 mg/mL SDV 1mL 12.5 MG IVP (21:09)
[2022-12-06] MEDS: metoclopramide 5 mg/mL SDV 2 mL 10 MG IVP (21:09)
[2022-12-06] MEDS: dexamethasone 10 mg/mL INJ IVP (21:10)
[2022-12-06] MEDS: sodium chloride 0.9% 500 ML 999 ML IV (21:10)
[2022-12-06 21:20] VITALS: BP 142/105; PULSE 75; RESP 20; O2SAT 100
[2022-12-06] MEDS: ketorolac 30 mg/mL INJ IM (21:50)
== END 2022-12-06 23:00 | disposition home or self-care (01) ==
PROVIDERS: Emergency Provider Nurse Practitioner Family; PCP Family Medicine
DX: G43.909 Migraine, unspecified, not intractable, without status migrainosus (principal)
CPT/HCPCS: 96372; 96374; 96375; 99284; J1100; J1200; J1885; J2765; J7040

== ENCOUNTER → 2023-02-08 08:39 | Outpatient (BNVA) | payer MEDICARE, SELFPAY | PROVIDERS: PCP Family Medicine; Visit Provider Internal Medicine Rheumatology | DX: M19.90 Unspecified osteoarthritis, unspecified site (principal); Z79.899 Other long term (current) drug therapy; M45.6 Ankylosing spondylitis lumbar region; R76.8 Other specified abnormal immunological findings in serum | CPT/HCPCS: 99204 ==

== ENCOUNTER 2023-03-05 09:38 | Emergency (ER) | payer MEDICARE, SELFPAY ==
[2023-03-05 09:52] VITALS: BP 153/103; PULSE 86; RESP 16; TEMP 36.7; O2SAT 98; BMI 32.9
[2023-03-05] MEDS: ketorolac 30 mg/mL INJ IVP (10:45)
[2023-03-05] MEDS: promethazine 25 mg/mL SDV 1 mL IM (10:46)
[2023-03-05] MEDS: valproic acid inj 500 MG in sodium chloride 0.9% 50 ML 55 MG IV (10:47)
[2023-03-05] MEDS: sodium chloride 0.9% 1,000 ML 999 ML IV (10:48)
--- NOTE | 2023-03-05 12:06 | ED_ITS ---
HPI - Headache General: Chief Complaint: Headache Stated Complaint: Migraine, ear pain, recent med change Time Seen by Provider: 03/05/23 09:42 Source: patient Mode of arrival: ambulatory History of Present Illness: 37-year-old female presents emergency room with complaint of right frontal migraine headaches been going on for a couple of days. It had progressively worsened throughout the day yesterday then improved overnight but began worsening again this morning she returned to the emergency room she not currently on any rescue therapy she had been using ibuprofen but has been cutting down because of some of her rheumatologic medications she takes. She has photophobia and photophobia nausea without vomiting. MD elicited complaint: headache Associated symptoms: Deny chest pain, fever(s) or rash Review of Systems Const: Denies: fever(s) or chills Card: Denies: chest pain Resp: Denies: dyspnea GI: Denies: abdominal pain : Denies: dysuria, urinary frequency or urinary urgency Musc: Denies: neck pain or back pain Skin/Breast: Denies: rash PFSH ED PFSH: Medical History Anxiety DDD (degenerative disc disease), lumbar Depression, controlled Fibromyalgia Headache disorder High risk medication use Inflammatory arthritis Insomnia, psychophysiological Nonspecific vaginitis RADHA (obstructive sleep apnea) Psychiatric care Supraventricular tachycardia Surgical History H/O: hysterectomy History of adenoidectomy History of bilateral breast reduction surgery History of cholecystectomy Family History Other Cancer Hypertension Denies family history of Lupus (systemic lupus erythematosus) Rheumatoid arthritis Colon cancer Ovarian cancer Diabetes Heart disease Hypercholesteremia Chronic kidney disease (CKD) Breast cancer Lung disease Uterine cancer Thyroid disease Stroke Social History Smoking and tobacco/nicotine status: current some day tobacco/nicotine user cigarettes [ Other cigarette details: pt in process of quitting] Alcohol intake: never Physical Exam Const: COMMON NORMALS: no acute distress GENERAL APPEARANCE: cooperative and comfortable ORIENTATION/CONSCIOUSNESS: Yes awake, Yes oriented to person, Yes oriented to place and Yes oriented to time HENMT: COMMON NORMALS: normocephalic, atraumatic, hearing grossly normal bilaterally, external ears normal, EAC's normal, TM's normal bilaterally and Nor mal nasal mucous membranes and turbinates present HEAD & SCALP: normocephalic and atraumatic NOSE: Normal nasal mucous membranes and turbinates present EXTERNAL EAR: Yes external ears normal EXTERNAL AUDITORY CANAL: EAC's normal TYMPANIC MEMBRANE: TM's normal bilaterally Eye: COMMON NORMALS: Equal, round and reactive pupils present, EOMs intact bilaterally, conjunctivae normal and no scleral icterus CONJUNCTIVA: Yes conjunctivae normal PUPIL: Yes Equal, round and reactive pupils present Neck/C-Spine: COMMON NORMALS: full ROM, no lymphadenopathy, supple and no JVD Resp: COMMON NORMALS: normal respiratory effort, No retractions, No use of accessory muscles and clear to auscultation bilaterally AUSCULTATION: clear to auscultation bilaterally Cardio: COMMON NORMALS: no JVD, regular rate, regular rhythm and No murmurs present (Cardio) RATE: regular rate RHYTHM: regular rhythm GI: COMMON NORMALS: Soft to palpation and No hepatosplenomegaly present AUSCULTATION: Yes normoactive bowel sounds PALPATION: Yes Soft to palpation, No Tenderness to palpation present (GI), No Guarding due to palpation present (GI) and Yes No hepatosplenomegaly present Extremity: COMMON NORMALS: normal to inspection, capillary refill normal, no clubbing, cyanosis or edema, no calf tenderness and no pedal edema Neuro: SENSORIUM/ORIENTATION: Yes oriented to person, Yes oriented to place and Yes oriented to time Skin: COMMON NORMALS: no rashes or lesions noted GENERAL SKIN EXAM: no rashes or lesions noted Course Vital Signs: Vital signs: Vital Signs Temperature 98.0 F 03/05/23 09:52 Pulse Rate 86 03/05/23 09:52 Respiratory Rate 16 03/05/23 09:52 Blood Pressure 153/103 03/05/23 09:52 Pulse Oximetry 98 03/05/23 09:52 Oxygen Delivery Me thod Room Air 03/05/23 09:52 MDM - Headache Medical Decision Making Improved with medications given discharged home with Phenergan to use as needed for breakthrough headaches. Advised the patient she can take occasional doses of ibuprofen but should not take regularly without consulting with the scientific laboratory supervisor primary care doctor in regards to her other medications. No radiology studies performed this visit Discharge Plan Discharge Patient Disposition: Home Clinical Impression: Migraine Condition: Stable Prescriptions: New promethazine 25 mg tablet 25 mg PO Q6H PRN (Reason: migraine headache) Qty: 20 0RF No Action fluticasone propionate [Flonase Allergy Relief] 50 mcg/actuation spray,suspension 2 spray intranasal DAILY Qty: 16 0RF Rx Instructions: administer into each nostril tizanidine 4 mg tablet 4 mg PO BID PRN (Reason: muscle spasticity) Qty: 30 2RF oxybutynin chloride 5 mg tablet extended release 24hr 5 mg PO DAILY Qty: 30 0RF Rx Instructions: not started as of 03/05/23 prednisone 5 mg tablet See Rx Instructions PO .COMPLEX PRN (Reason: joint pain flare) Qty: 30 1RF Rx Instructions: take 1-2 tabs po daily for 3-7 days prn for joint pain flare Trelegy Ellipta 200-62.5-25 mcg blister with device 1 inh inhalation DAILY Qty: 60 5RF albuterol sulfate 90 mcg/actuation HFA aerosol inhaler 2 puff inhalation Q6H PRN (Reason: shortness of breath or wheezing) Qty: 8.5 5RF buspirone 10 mg tablet 10 mg PO TID Qty: 90 2RF lamotrigine [Lamictal] 25 mg tablet 50 mg PO BID Qty: 120 2RF trazodone 50 mg tablet 100 mg PO BEDTIME 30 Days Qty: 60 2RF ziprasidone HCl 20 mg capsule 40 mg PO BID 30 Days Qty: 120 2RF diphenhydramine HCl [Benadryl] 25 mg Capsule 25 - 50 mg PO Q6H PRN (Reason: Allergy Symptoms) Tylenol Ex Str Rapid Release 500 mg Tablet 1,000 mg PO Q6H PRN (Reason: Pain) leflunomide 20 mg tablet 20 mg PO BEDTIME pantoprazole 40 mg tablet,delayed release (DR/EC) 40 mg PO QAM montelukast 10 mg tablet 10 mg PO QPM mupirocin 2 % ointment 1 applic topical TID PRN (Reason: unknown) escitalopram oxalate 10 mg tablet 10 mg PO BEDTIME Discharge Orders: Discharge ED (Routine); Ordered 03/05/23 Ordered By: Lewis Londono Referrals: Gauri,Velasquez W, DO [Primary Care Provider] - Discharge Diet: Usual diet Discharge Activity: Increase activity as tolerated Patient Instructions: Migraine Headache (ED), Opioid Safety, Pain Management Activity Restrictions/Additional Instructions: Thank you for choosing [facility] for your healthcare needs today. Please realize this is an emergency room and that we are providing you with a medical screening exam and this may not be complete and all inclusive of all the testing and or work up that you may need to determine your ailment or severity of your illness. It is very important that you follow up as instructed or that you return to the Emergency Department should you have concerns or if your condition changes or worsens in any way. You are seen today for migraine headache which improved with medications given. You can use Phenergan along with occasional doses of ibuprofen for breakthrough headaches. Be very cautious about routine use of ibuprofen follow-up with your scientific laboratory supervisor and your primary care doctor if the promethazine ibuprofen combination does not improve your headaches Coding Level of Care Code ED Bike Mechanic for Yolanda Almazan
[2023-03-05 12:41] VITALS: BP 157/99; PULSE 86; RESP 16; TEMP 36.7; O2SAT 98
== END 2023-03-05 12:53 | disposition home or self-care (01) ==
PROVIDERS: Emergency Provider Family Medicine; PCP Family Medicine
DX: G43.909 Migraine, unspecified, not intractable, without status migrainosus (principal); F17.210 Nicotine dependence, cigarettes, uncomplicated
CPT/HCPCS: 96365; 96372; 96375; 99284; J1885; J2550; J3490; J7030

== ENCOUNTER 2023-03-29 09:04 | Outpatient (CLI) | payer MEDICARE, SELFPAY ==
--- NOTE | 2023-03-29 09:16 | XR_ITS ---
WS: [id number] Exam: XR foot RT min 3V* [id number] Date/Time of Exam: 03/29/2023 9:32 AM Reason For Exam: Z79.899 - Other prison (current) drug therapy Findings: The foot was examined in multiple views and reveals no fractures or displacements of bone. No bony a nomalies are noted. The bony elements are in adequate alignment. The joint spaces are smooth and eq uidistant. IMPRESSION: Negative RIGHT foot.
--- NOTE | 2023-03-29 09:16 | XR_ITS ---
WS: [id number] Exam: XR foot LT min 3V* [id number] Date/Time of Exam: 03/29/2023 9:32 AM Reason For Exam: Z79.899 - Other nursing home (current) drug therapy Findings: The foot was examined in multiple views and reveals no fractures or displacements of bone. No bony a nomalies are noted. The bony elements are in adequate alignment. The joint spaces are smooth and eq uidistant. IMPRESSION: Negative LEFT foot.
--- NOTE | 2023-03-29 09:16 | XR_ITS ---
WS: [id number] Exam: XR hand RT min 3V* [id number] Date/Time of Exam: 03/29/2023 9:32 AM Reason For Exam: Z79.899 - Other senior care (current) drug therapy Findings: No fractures, soft tissue swelling, or unusual calcifications are noted. The hand shows normal bony alignment. There is no irregularity of the bony architecture. IMPRESSION: Normal RIGHT hand.
--- NOTE | 2023-03-29 09:16 | XR_ITS ---
WS: [id number] Exam: XR hand LT min 3V* [id number] Date/Time of Exam: 03/29/2023 9:32 AM Reason For Exam: Z79.899 - Other [facility] (current) drug therapy Findings: No fractures, soft tissue swelling, or unusual calcifications are noted. The hand shows normal bony alignment. There is no irregularity of the bony architecture. IMPRESSION: Normal LEFT hand.
[2023-03-29 10:10] LABS: Basophils # 0.1 10^3/uL (0.0-0.1); Basophils % 0.5 %; Eosinophils # 0.4 10^3/uL (0.0-0.8); Eosinophils % 3.3 %; Hematocrit 43.1 % (36-47); Lymphocytes # 2.5 10^3/uL (0.8-4.8); Lymphocytes % 20.4 %; Mean Corpuscular HGB Conc 32.9 g/dL (30-55); Mean Corpuscular Hemoglobin 29.2 pg (27-33); Mean Corpuscular Volume 88.7 fl (85-98); Mean Platelet Volume 10.3 fL (7.4-10.4); Monocytes # 0.8 10^3/uL (0.2-0.9); Monocytes % 6.8 %; Neutrophils # 8.41 10^3/uL (1.8-7.7); Neutrophils % 68.7 %; Nucleated Red Blood Cells % 0 %; Platelet Count 339 10^3/cmm (157-399); Red Blood Count 4.86 10^6/uL (3.85-5.65); Red Cell Distribution Width 13.3 % (12.1-15.1); White Blood Count 12.25 10^3/uL (3.29-11.43)
[2023-03-29 10:20] LABS: Erythrocyte Sedimentation Rate 22 mm/hr (0-15)
[2023-03-29 10:31] LABS: Alanine Aminotransferase 34 U/L (0-33); Alkaline Phosphatase 103 U/L (35-105); Aspartate Amino Transferase 23 U/L (0-32); C Reactive Protein 5.7 mg/L (0.0-4.9); Globulin 3.7 g/dL (1.3-4.6); Glomerular Filtration Rate 93.6 mL/min (90-130); Total Bilirubin 0.2 mg/dL (0.15-1.2); Total Protein 7.7 g/dL (6.6-8.7)
[2023-03-29 10:47] LABS: Hepatitis B Core AB, Total Non-Reactive (Nonreactive); Hepatitis B Surface Antigen Non-Reactive (Nonreactive); Hepatitis C Virus Antibody Non-Reactive (Nonreactive)
[2023-03-30 22:09] LABS: HLA-B27 NEGATIVE (NEGATIVE)
[2023-04-01 12:49] LABS: Quantiferon Mitogen >10.00 IU/mL; Quantiferon Nil 0.02 IU/mL; Quantiferon TB Gold NEGATIVE (NEGATIVE)
== END 2023-03-29 09:05 | disposition home or self-care (01) ==
LOC: LAB 09:05
PROVIDERS: PCP Family Medicine; Visit Provider Internal Medicine Rheumatology
DX: M19.90 Unspecified osteoarthritis, unspecified site (principal); M45.6 Ankylosing spondylitis lumbar region; Z79.899 Other long term (current) drug therapy; Z11.59 Encounter for screening for other viral diseases; Z11.1 Encounter for screening for respiratory tuberculosis
CPT/HCPCS: 36415; 73130; 73630; 80076; 82565; 85025; 85651; 86140; 86480; 86704; 86803; 86812; 87340

== ENCOUNTER → 2023-04-15 10:20 | Outpatient (BNVA) | payer MEDICARE, SELFPAY | PROVIDERS: PCP Family Medicine; Visit Provider Nurse Practitioner | DX: J02.9 Acute pharyngitis, unspecified (principal); R51.9 Headache, unspecified; J06.9 Acute upper respiratory infection, unspecified | CPT/HCPCS: 87426; 87880 ==

== ENCOUNTER → 2023-04-26 12:33 | Outpatient (BNVA) | payer MEDICARE, SELFPAY | PROVIDERS: PCP Family Medicine; Visit Provider Internal Medicine Rheumatology | DX: Z79.899 Other long term (current) drug therapy (principal); R76.8 Other specified abnormal immunological findings in serum; M06.041 Rheumatoid arthritis without rheumatoid factor, right hand; M06.042 Rheumatoid arthritis without rheumatoid factor, left hand | CPT/HCPCS: 99214 ==

== ENCOUNTER → 2023-06-03 08:40 | Outpatient (BNVA) | payer MEDICARE, SELFPAY | PROVIDERS: PCP Family Medicine; Visit Provider Family Medicine Adult Medicine | DX: J02.9 Acute pharyngitis, unspecified (principal); R68.89 Other general symptoms and signs | CPT/HCPCS: 87071; 87400; 87880 ==

== ENCOUNTER → 2023-08-02 14:05 | Outpatient (BNVA) | payer MEDICARE, SELFPAY | PROVIDERS: PCP Family Medicine; Visit Provider Internal Medicine Rheumatology | DX: M06.041 Rheumatoid arthritis without rheumatoid factor, right hand (principal); M06.042 Rheumatoid arthritis without rheumatoid factor, left hand; Z79.899 Other long term (current) drug therapy; R76.8 Other specified abnormal immunological findings in serum | CPT/HCPCS: 99214 ==

== ENCOUNTER 2023-12-21 14:54 | Outpatient (CLI) | payer MEDICARE, SELFPAY ==
[2023-12-21 15:12] LABS: Basophils # 0.1 10^3/uL (0.0-0.1); Basophils % 0.6 %; Eosinophils # 0.4 10^3/uL (0.0-0.8); Eosinophils % 4.4 %; Hematocrit 42.3 % (36-47); Lymphocytes # 3.1 10^3/uL (0.8-4.8); Lymphocytes % 31.4 %; Mean Corpuscular HGB Conc 31.4 g/dL (30-55); Mean Corpuscular Hemoglobin 29.5 pg (27-33); Mean Corpuscular Volume 93.8 fl (85-98); Mean Platelet Volume 10.4 fL (7.4-10.4); Monocytes # 0.7 10^3/uL (0.2-0.9); Monocytes % 6.9 %; Neutrophils # 5.51 10^3/uL (1.8-7.7); Neutrophils % 56.4 %; Nucleated Red Blood Cells % 0 %; Platelet Count 275 10^3/cmm (157-399); Red Blood Count 4.51 10^6/uL (3.85-5.65); Red Cell Distribution Width 13.2 % (12.1-15.1); White Blood Count 9.76 10^3/uL (3.29-11.43)
[2023-12-21 15:30] LABS: Alanine Aminotransferase 29 U/L (0-33); Alkaline Phosphatase 107 U/L (35-105); Aspartate Amino Transferase 20 U/L (0-32); C Reactive Protein 6.7 mg/L (0.0-4.9); Globulin 3.2 g/dL (1.3-4.6); Glomerular Filtration Rate 70.1 mL/min (90-130); Total Bilirubin 0.2 mg/dL (0.15-1.2); Total Protein 7.2 g/dL (6.6-8.7)
== END 2023-12-21 14:55 | disposition home or self-care (01) ==
LOC: LAB 14:54
PROVIDERS: PCP Family Medicine; Visit Provider Internal Medicine Rheumatology
DX: Z79.899 Other long term (current) drug therapy (principal); M06.041 Rheumatoid arthritis without rheumatoid factor, right hand; M06.042 Rheumatoid arthritis without rheumatoid factor, left hand
CPT/HCPCS: 36415; 80076; 82565; 85025; 86140

== ENCOUNTER → 2023-12-22 09:39 | Outpatient (BNVA) | payer MEDICARE, SELFPAY | PROVIDERS: PCP Family Medicine; Visit Provider Internal Medicine Rheumatology | DX: Z79.899 Other long term (current) drug therapy (principal); M06.041 Rheumatoid arthritis without rheumatoid factor, right hand; M06.042 Rheumatoid arthritis without rheumatoid factor, left hand; R76.8 Other specified abnormal immunological findings in serum; Z71.85 Encounter for immunization safety counseling | CPT/HCPCS: 99214 ==

== ENCOUNTER → 2024-01-30 14:22 | Outpatient (BNVA) | payer MEDICARE, SELFPAY | DX: E66.9 Obesity, unspecified (principal) | CPT/HCPCS: 80053 ==

== ENCOUNTER → 2024-03-12 14:19 | Outpatient (BNVA) | payer MEDICARE, SELFPAY | PROVIDERS: Visit Provider Nurse Practitioner Family | DX: Q80.0 Ichthyosis vulgaris (principal); L23.9 Allergic contact dermatitis, unspecified cause; D22.39 Melanocytic nevi of other parts of face | CPT/HCPCS: 99204 ==

== ENCOUNTER → 2024-04-16 15:15 | Outpatient (BNVA) | payer MEDICARE, SELFPAY | PROVIDERS: Visit Provider Nurse Practitioner Family | DX: Q80.0 Ichthyosis vulgaris (principal); L23.9 Allergic contact dermatitis, unspecified cause | CPT/HCPCS: 99214 ==

== ENCOUNTER → 2024-09-13 14:07 | Outpatient (BNVA) | payer MEDICARE, SELFPAY | PROVIDERS: Visit Provider Internal Medicine Rheumatology | DX: Z79.899 Other long term (current) drug therapy (principal); R76.8 Other specified abnormal immunological findings in serum; M06.041 Rheumatoid arthritis without rheumatoid factor, right hand; M06.042 Rheumatoid arthritis without rheumatoid factor, left hand; Z71.85 Encounter for immunization safety counseling | CPT/HCPCS: 99214 ==

== ENCOUNTER → 2024-11-19 17:27 | Outpatient (BNVA) | payer MEDICARE, SELFPAY | PROVIDERS: Visit Provider Registered Nurse Neonatal Intensive Care | DX: R30.0 Dysuria (principal); Z20.2 Contact with and (suspected) exposure to infections with a predominantly sexual mode of transmission; R39.9 Unspecified symptoms and signs involving the genitourinary system | CPT/HCPCS: 81000; 87086; 87491; 87591; 87661 ==

== ENCOUNTER 2025-04-08 20:09 | Outpatient (CLI) | payer MEDICARE, SELFPAY | END 2025-04-08 20:10 | disposition home or self-care (01) | LOC: SLEEP 20:10 | PROVIDERS: Referring Provider Nurse Practitioner Psychiatric/Mental Health; Visit Provider Internal Medicine Pulmonary Disease | DX: G47.33 Obstructive sleep apnea (adult) (pediatric) (principal); G47.61 Periodic limb movement disorder | CPT/HCPCS: 95810 ==

== ENCOUNTER 2025-04-09 17:29 | Emergency (ER) | payer MEDICARE, SELFPAY ==
--- OUTSIDE RECORDS SUMMARY | 2024-02-11 03:00 | XMS_ITS ---
Author Organization [facility] Address [address] [place] [address] Care Team Providers Care Wire Drawing Die Maker Name Role Phone Tyrese Scott Unavailable [phone] Migration, Provider Unavailable Unavailable REASON FOR VISIT EMR-Angelo Encounters Encounter Location Date Provider Diagnosis Migrated_Facility 0 0 02/11/2024 Provider Migration Plan Of Treatment Medication Medication Name Sig Start Date Stop Date Notes traMADol HCl 50 MG Tablet 1 Tablet Every 6 Hours PRN for 30 Days Oral 01/28/2012 02/27/2012 Progress Notes * Caroline HUITRON DDOB: 5 (40 yo F)Acc No.[id number]:02/11/2024 Patient: Bisi HARESHLEANDROCaroline :1985 A ge:38 Y S ex:Female Address:[address] [place], [address] * Refills Stop traMADol HCl Tablet, 50 MG, Oral, 1 Tablet Every 6 Hours PRN for 30 Days Subjective: * Chief Complaints: * E MR-Angelo * * Date:
--- OUTSIDE RECORDS SUMMARY | 2024-02-12 03:00 | XMS_ITS ---
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 Name Role Phone Tyrese Scott Unavailable [phone] Migration, Provider Unavailable Unavailable Allergies Allergen (clinical drug ingredient) Drug/Non Drug Allergy documented on EMR Reaction Allergy Type Onset Date Status erythromycin Erythromycin Base Unknown Drug Allergy Active Iodinated contrast media (substance) Iodinated Diagnostic Agents Unknown Drug Allergy Active Substance with penicillin structure and antibacterial mechanism of action (substance) Penicillins Unknown Drug Allergy Active REASON FOR VISIT EMR-Angelo Medications Medication SIG (Take, Route, Frequency, Duration) Notes Start Date End Date Status Ranitidine *Reorder from [facility] dispan for eRx and Interaction Alerts* Active Benadryl *Reorder from [facility] dispan for eRx and Interaction Alerts* Active buPROPion HCl *Pick strength-f orm from [facility] for eRX* Active Social History Social History Additional Details Category Social Info Options Details Migrated Social History Migrated Social History Alcoholic beverages? - No, Currently on disability? - Yes, Drug or substance abuse? - No, Marital Status - , Nonprescription drug use? - No, Smoking - 1/2 PPD, Working currently? - No Encounters Encounter Location Date Provider Diagnosis Migrated_Facility 0 0 02/12/2024 Provider Migration Plan Of Treatment No Information Progress Notes * Caroline HUITRON DDOB: 5 (40 yo F)Acc No.[id number]:02/12/2024 Patient: Bisi SWARTZ Caroline Lackey :1985 A ge:38 Y S ex:Female Address:[address] [place], [address] Subjective: * Chief Complaints: * E MR-Angelo * Surgical History: Achilles tendon repair adnoid removal Gallbladder surgery * Family History: M igrated Family History: : Cancer. * Social History: M igrated Social History: M igrated Social History: Alcoholic beverages? - No, C urrently on disability? - Yes, D rug or substance abuse? - No, M arital Status - , N onprescription drug use? - No, S moking - 1/2 PPD, W orking currently? - No. * Medications: T akingRanitidine , Notes to Pharmacist: *Reorder from [facility] for eRx and Interaction Alerts*buPROPion HCl , Notes to Pharmacist: *Pick strength-form from [facility] for eRX*Benadryl , Notes to Pharmacist: *Reorder from [facility] for eRx and Interaction Alerts*Taking Ranitidine , Notes to Pharmacist: *Reorder from [facility] for eRx and Interaction Alerts*Taking buPROPion HCl , Notes to Pharmacist: *Pick strength- form from [facility] for eRX*Taking Benadryl , Notes to Pharmacist: *Reorder from [facility] for eRx and Interaction Alerts* * Allergies: P enicillins: AllergyErythromycin Base: AllergyIodinated Diagnostic Agents: Allergy * * Date:
[2025-04-09 17:36] VITALS: BP 162/98; PULSE 97; RESP 16; TEMP 36.6; O2SAT 99
--- OUTSIDE RECORDS SUMMARY | 2025-04-09 17:39 | XMS_ITS | Clinical Summary ---
Author Organization [facility] Address [address] Hernandez: [place] [address] Care Team Providers Care Blade Boner Name Role Phone Tyler Rachel MD, Tyrese Inman Primary Care Provider Allergies Active Allergy Reactions Criticality Noted Date Comments Avocado Swelling Low 11/12/2015 Erythromycin Hives,Rash High 09/09/2015 Iodinated Contrast Media Hives,Rash High 09/09/2015 Latex Swelling Low 05/20/2016 Nickel Itching Low 11/12/2015 Penicillins Hives,Rash High 09/09/2015 Tree Nuts Other (See Comments) 09/09/2015 Medications busPIRone (BUSPAR) 10 mg tablet Take 10 mg by mouth 3 times daily. Active traZODone (DESYREL) 50 mg tablet Take 50 mg by mouth daily at bedtime. Active lamoTRIgine (LaMICtal) 25 mg tablet Take 25 mg by mouth 2 times daily. Active ziprasidone (GEODON) 20 mg Capsule Take 20 mg by mouth 2 times daily with meals. Active buPROPion HCL (WELLBUTRIN XL) 150 mg Extended Release 24 hour tablet Take 150 mg by mouth daily in the morning. Active diphenhydrAMINE (BENADRYL) 12.5 mg/5 mL Elixir Take 12.5 mg by mouth every 6 hours as needed for Allergies. Active escitalopram oxalate (LEXAPRO) 10 mg tablet Take 10 mg by mouth daily. Active pantoprazole (PROTONIX) 40 mg Tablet, Delayed Release (E.C.) Take 40 mg by mouth daily. Active montelukast (SINGULAIR) 10 mg tablet Take 10 mg by mouth daily at bedtime. Active albuterol sulfate 90 mcg/Actuation inhaler Take 2 Puffs by inhalation every 6 hours as needed for Shortness of Breath. Active azelastine (ASTELIN) 137 mcg/actuation nasal sprayIndications :Seasonal and perennial allergic rhinoconjunctivi tis,Allergic rhinitis due to house dust mite,Allergic rhinitis due to animal (cat) (dog) hair and dander Administer 1 [place] in each nostril see administration instructions. 1-4x/day PRN 1 mL 5 02/13/20 21 Active fluticasone propionate (FLONASE) 50 mcg/spray [place], Suspension nasal inhalerIndicatio ns:Seasonal and perennial allergic rhinoconjunctivi tis,Allergic rhinitis due to house dust mite,Allergic rhinitis due to animal (cat) (dog) hair and dander 1 [place] by See Admin Instructions route daily. 1 spray each nostril 1-2x/day PRN for nasal congestion 16 Gram 5 02/19/20 21 Active fluticasone-umec lidinium-vilante rol (TRELEGY ELLIPTA) 100-62.5-25 mcg Disk with DeviceIndication s:Moderate persistent asthma without complication Take 1 Puff by inhalation daily. 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 30 Tablet 1 09/10/19 16 Active escitalopram oxalate (LEXAPRO) 5 mg tablet Take 5 mg by mouth daily. 05/20/19 17 Active HYDROcodone-acet aminophen (NORCO) 5-325 mg tablet Take 1 Tablet by mouth every 12 hours as needed for Pain, Moderate. 05/20/19 17 Active omeprazole (PriLOSEC) 20 mg Capsule, Delayed Release(E.C.) Take 20 mg by mouth daily. 05/20/19 17 Active pregabalin (LYRICA ORAL) Take 75 mg by mouth 2 times daily . 09/09/19 16 Active METOPROLOL TARTRATE ORAL Take 25 mg by mouth daily . 09/09/19 16 Active calcium carbonate-magnes ium hydroxide (ROLAIDS) 550-110 mg Tablet, Chewable Take by mouth. 11/12/19 16 Active topiramate (TOPAMAX ORAL) Take by mouth. 09/09/19 16 Active Active Problems Problem Noted Date Diagnosed Date Status post bilateral breast reduction 6 Symptomatic mammary hypertrophy 11/13/2015 Immunizations Immunization Administration Dates Next Due Influenza Seasonal Unspecified Formulation IM ,02/11/2015 Family History Medical History Relation Name Comments Healthy Brother Healthy Father Healthy Mother Relation Name Status Comments Brother Alive Father Alive Maternal Grandfather Maternal Grandmother Alive Mother Alive Social History Tobacco Use Types Packs/Day Years Used Date Smoking Tobacco: Every Day Cigarettes Smokeless Tobacco: Never Alcohol Use Standard Drinks/Week Comments No 0 (1 standard drink = 0.6 oz pur e alcohol) Comments No Sex and Gender Information Value Date Recorded Sex Assigned at Not on file 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 Sex 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 Gender Identity Not on file Sexual Orientation Not on file Last Filed Vital Signs Vital Sign Reading Time Taken Comments Blood Pressure 125/90 04/12/2021 12:02 PM GUEST RELATIONS EXECUTIVE Pulse 85 05/24/2016 8:31 AM GUEST RELATIONS EXECUTIVE Temperature 36.1 C (97 F) 04/12/2021 10:54 AM GUEST RELATIONS EXECUTIVE Respiratory Rate 18 04/12/2021 12:02 PM GUEST RELATIONS EXECUTIVE Oxygen Saturation 98% 04/12/2021 12:02 PM GUEST RELATIONS EXECUTIVE Inhaled Oxygen Concentration - - Weight 97.5 kg (215 lb) 04/12/2021 10:54 AM GUEST RELATIONS EXECUTIVE Height 157.5 cm (5' 2 ) 04/12/2021 10:54 AM GUEST RELATIONS EXECUTIVE Body Mass Index 39.32 04/12/2021 10:54 AM GUEST RELATIONS EXECUTIVE Plan of Treatment Health Maintenance Due Date Last Done Comments DTAP/TDAP/TD VACCINES (1 - Tdap) 2004 HEPATITIS B VACCINES (1 of 3 - 19+ 3-dose series) 2004 HPV/Cotest (21-29) 2006 CERVICAL CANCER SCREENING 2015 HPV/Cotest (30-65) 2015 PAP SMEAR 2015 INFLUENZA VACCINE (#1) 2024 02/11/2016, 2014 BREAST CANCER SCREENING 2025 HPV VACCINES (No Doses Required) Completed Insurance [facility] Care Teams Blade Boner Relationship Specialty Start Date End Date Tyrese Scott Jr., MD [address] [place] [address] PCP - General Family Practice 11/10/15
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
--- OUTSIDE RECORDS SUMMARY | 2025-04-09 17:39 | XMS_ITS | Clinical Summary ---
Author Organization [facility] Address [address] [place] [address] Care Team Providers Care Title Lawyer Name Role Phone Tyler Rachel MD, Tyrese Inman Primary Care Provider Allergies Active Allergy Reactions Criticality Noted Date Comments Avocado Swelling Low 11/12/2015 Erythromycin Hives,Rash High 09/09/2015 Iodinated Contrast Media Hives,Rash High 09/09/2015 Latex Swelling Low 05/20/2016 Nickel Itching Low 11/12/2015 Penicillins Hives,Rash High 09/09/2015 Tree Nuts Other (See Comments) 09/09/2015 Medications PREGABALIN (LYRICA ORAL) Take 75 mg by mouth 2 times daily . Active TOPIRAMATE (TOPAMAX ORAL) Take by mouth. Active METOPROLOL TARTRATE ORAL Take 25 mg by mouth daily . 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 30 Tablet 1 09/10/2015 Active calcium carbonate-mag hydroxid (ROLAIDS) 550-110 mg Tablet, Chewable Take by mouth. Active HYDROcodone-acet aminophen (NORCO) 5-325 mg tablet Take 1 Tablet by mouth every 12 hours as needed for Pain, Moderate. Active omeprazole (PriLOSEC) 20 mg Capsule, Delayed Release(E.C.) Take 20 mg by mouth daily. Active escitalopram oxalate (LEXAPRO) 5 mg tablet Take 5 mg by mouth daily. 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 Gender Identity Not on file Sexual Orientation Not on file Last Filed Vital Signs Vital Sign Reading Time Taken Comments Blood Pressure 118/70 06/07/2016 10:22 AM GENETIC SCIENTIST Pulse 85 05/24/2016 8:31 AM GENETIC SCIENTIST Temperature 36.6 C (97.8 F) 05/24/2016 6:37 AM GENETIC SCIENTIST Respiratory Rate 16 05/24/2016 6:37 AM GENETIC SCIENTIST Oxygen Saturation 100% 05/24/2016 8:31 AM GENETIC SCIENTIST Inhaled Oxygen Concentration - - Weight 95.3 kg (210 lb) 06/07/2016 10:22 AM GENETIC SCIENTIST Height 157.5 cm (5' 2 ) 06/07/2016 10:22 AM GENETIC SCIENTIST Body Mass Index 38.41 06/07/2016 10:22 AM GENETIC SCIENTIST Plan of Treatment Health Maintenance Due Date Last Done Comments DTAP/TDAP/TD VACCINES (1 - Tdap) 2004 HEPATITIS B VACCINES (1 of 3 - 19+ 3-dose series) 2004 HPV/Cotest (21-29) 2006 CERVICAL CANCER SCREENING 2015 HPV/Cotest (30-65) 2015 PAP SMEAR 2015 INFLUENZA VACCINE (#1) 2024 02/11/2016, 2014 BREAST CANCER SCREENING 2025 HPV VACCINES (No Doses Required) Completed Insurance MEDICARE PART A AND B Advance Directives For more information, please contact: [phone] * Full Code (Latest Code Status on File) Date Activated Date Inactivated Comments 11/17/2015 11:32 AM 11/17/2015 7:44 PM * Full Code Date Activated Date Inactivated Comments 11/17/2015 11:07 AM 11/17/2015 11:32 AM Care Teams Title Lawyer Relationship Specialty Start Date End Date Tyrese Scott Jr., MD [address] [place] [address] PCP - General Family Practice 11/10/15
--- OUTSIDE RECORDS SUMMARY | 2025-04-09 17:39 | XMS_ITS | Data Portability ---
Author Organization [facility] Address [address] [place] [address] Assessment No assessment recorded. Plan of Treatment Reminders Order Date Submit Date Provider Last Modified By Organization Details Last Modified Time Details Appointments None recorded. Lab None recorded. Referral None recorded. Procedures None recorded. Surgeries None recorded. Imaging None recorded. Medication Orders clobetasol 0.05 % topical cream 2022 023 [facility], [address], [place], [address], 3 19:09:21 Patient TargetsNo targets recorded. Patient Instructions Encounter Date Encounter Id Patient Instructions Last Modified By Organization Details Last Modified Time 06/03/2024 [id number] continue allergy medicine and sudafed. Increase water. Follow up for worsening dschulte6 Not available 06/03/2024 17:29:38 Reason for Referral None Reported. Results Created Date Observation Date Name Description Value Unit Range Abnormal Flag Note LastModifiedBy Organization Detail LastModifiedTime Result Notes None recorded. Problems Name Problem SNOMED Code Status Onset Date Resolution Date Notes Provider Name and Address Organization Details Recorded Time Fibroaden osis of breast 68308168 Active 2021 FIBROADENO SIS OF BREAST; Recorded 06/22/2021 5:47PM by Ashley Pereira, Office Visit; Promoted; acuity set as *; Not Available [facility] 3 03:07:30 History of adenoidec donal 665426400 Active 2021 Adenoidect [place]; 06/22/2021 5:47PM by Ashley Pereira, Office Visit; Promoted; acuity set as *; Not Available [facility] 3 03:07:30 Cyst of ovary 20526647 Active 2021 OVARIAN CYST; Recorded 06/22/2021 5:46PM by Ashley Pereira, Office Visit; Promoted; acuity set as *; Not Available [facility] 3 03:07:32 Atopic dermatiti s 57586074 Active 2022 Malcolm Perez MD [address] [place] [address], [phone] , [facility] 3 19:08:49 Problem Notes None recorded. Medical Equipment None Reported. Allergies Allergen ID Allergen Name Allergen Category Reaction Reaction Severity Criticality Documentation Date Start Date Code Code System Note Provider Name and Address Organization Details Recorded Time 95827 erythromy robin medicatio n rash Not available Not available 11/13/2022 4053 RxNorm React ion: Rash; Comme nt: Recor ded 06/22 5:47P M by Eliza Pereira Offic e Visit ; Promo thu; Signi ficjack ce: *; ; Not Available [facility] 3 02:27:34 34277 Substance with sulfonami de structure and antibacte rial mechanism of action (substanc e) medicatio n rash Not available Not available 11/13/2022 93470 8003 SNOMED React ion: Rash; Comme nt: Recor ded 06/22 5:47P M by Eliza Pereira Offic e Visit ; Promo thu; Signi ficjack ce: *; ; Not Available [facility] 3 02:27:34 88067 Product containin g penicilli n (product) medicatio n rash Not available Not available 11/13/2022 60539 8001 SNOMED React ion: Rash; Comme nt: Recor ded 06/22 5:47P M by Eliza Pereira Offic e Visit ; Promo thu; Signi ficjack ce: *; ; Not Available [facility] 3 02:27:34 Medications Name Sig Start Date Stop Date Status Note LastModified by Organization Details LastModified Time prednison e 10 mg tablet TAKE 1 TABLET BY MOUTH EVERY DAY for 5 days in addition TO regular predniso ne DOSE active Not Available Not Available No t Available ammonium lactate 12 % lotion apply TO body ONE or TWO times DAILY active Not Available Not Available No t Available triazolam 0.25 mg tablet TAKE 1 TABLET BY MOUTH ONE HOUR BEFORE DENTAL APPOINTM ENT AND TAKE OTHER TWO TABLETS WITH YOU active Not Available Not Available No t Available trazodone 50 mg tablet TAKE 2 TABLETS BY MOUTH AT BEDTIME active Not Available Not Available No t Available azithromy robin 250 mg tablet TAKE 2 TABLETS BY MOUTH TODAY, THEN TAKE 1 TABLET DAILY ON DAYS 2-5 06/03 completed Not Available Not Available Not Available ibuprofen 800 mg tablet TAKE 1 TABLET BY MOUTH EVERY 4 TO 6 HOURS NEEDED 06/03 completed Not Available Not Available Not Available tizanidin e 4 mg tablet TAKE 1 TABLET BY MOUTH TWICE DAILY NEEDED FOR MUSCLE SPASTICI TY active Not Available Not Available No t Available valacyclo vir 1 gram tablet TAKE 1 TABLET BY MOUTH EVERY 8 HOURS FOR 10 DAYS 06/03 completed Not Available Not Available Not Available hydrocodo ne 5 mg-acetam inophen 325 mg tablet TAKE 1 TABLET BY MOUTH EVERY 6 HOURS NEEDED FOR PAIN 06/03 completed Not Available Not Available Not Available clobetaso l 0.05 % topical cream apply topicall y TWICE DAILY TO rash TO FEET and wrap, not FOR USE ON face, groin or SKIN folds; STOP applicat ions when CLEAR active Not Available Not Available No t Available hydroxyzi ne HCl 50 mg tablet TAKE 1 TABLET BY MOUTH FOUR TIMES DAILY NEEDED FOR ITCHING, ANXIETY OR INSOMNIA active Not Available Not Available No t Available acetamino phen 300 mg-codein e 30 mg tablet TAKE 1 TABLET BY MOUTH EVERY 4 TO 6 HOURS NEEDED 06/03 completed Not Available Not Available Not Available leflunomi de 20 mg tablet TAKE 1 TABLET BY MOUTH EVERY DAY active Not Available Not Available No t Available lamotrigi ne 25 mg tablet TAKE 2 TABLETS BY MOUTH TWICE DAILY active Not Available Not Available No t Available ziprasido ne 20 mg capsule TAKE 2 CAPSULES BY MOUTH TWICE DAILY active Not Available Not Available No t Available cephalexi n 500 mg capsule take 1 capsule BY MOUTH FOUR TIMES DAILY 06/03 completed Not Available Not Available Not Available pantopraz ole 40 mg tablet,de layed release TAKE ONE TABLET BY MOUTH DAILY AT 9AM active Not Available Not Available No t Available buspirone 10 mg tablet TAKE 1 TABLET BY MOUTH THREE TIMES DAILY active Not Available Not Available No t Available monteluka st 10 mg tablet TAKE ONE TABLET BY MOUTH DAILY AT 5PM active Not Available Not Available No t Available hydroxych loroquine 200 mg tablet TAKE 1 TABLET BY MOUTH TWICE DAILY active Not Available Not Available No t Available albuterol sulfate HFA 90 mcg/actua tion aerosol inhaler INHALE TWO PUFFS EVERY 6 HOURS NEEDED FOR SHORTNES S OF BREATH or wheezing active Not Available Not Available No t Available doxycycli ne hyclate 100 mg tablet TAKE 1 TABLET BY MOUTH TWICE DAILY for 10 days 06/03 completed Not Available Not Available Not Available escitalop rahel 10 mg tablet TAKE 1 TABLET BY MOUTH AT BEDTIME 06/03 completed Not Available Not Available Not Available cyclobenz aprine 5 mg tablet TAKE 1 TABLET BY MOUTH THREE TIMES DAILY NEEDED FOR MUSCLE SPASMS 06/03 completed Not Available Not Available Not Available sodium fluoride 1.1 % dental cream BRUSE ON ONCE DAILY BEFORE BED DIRECTED BY DENTIST active Not Available Not Available No t Available chlorhexi dine gluconate 0.12 % mouthwash RINSE with one capful FOR 30 seconds TWICE DAILY active Not Available Not Available No t Available trazodone 06/03 completed 0; Recorded 06/23/19 22 5:51PM by Ashley Pereira, Office Visit; Not Available Not Available Not Available Lamictal active 0; Recorded 06/23/19 22 5:51PM by Ashley Pereira, Office Visit; Not Available Not Available Not Available buspirone 06/03 completed 0; Recorded 06/23/19 22 5:52PM by Ashley Pereira, Office Visit; Not Available Not Available Not Available Lexapro active 0; Recorded 06/23/19 22 5:52PM by Ashley Pereira, Office Visit; Not Available Not Available Not Available Trelegy Ellipta 200 mcg-62.5 mcg-25 mcg powder for inhalatio n INHALE 1 PUFF EVERY DAY active Not Available Not Available No t Available Vitals Date Recorded Body height Body mass index (BMI) Body weight Body temperature Heart rate Oxygen saturation Systolic And Diastolic Provider Name and Address Organization Details Last Updated DateTime 02/16/202 5 157.48 cm 35.9 kg/m2 10165.8 g 98 [degF] 80 /min 98 % 142/80 mm[Hg] Roxi Cooper [facility] 17:11:21 Date Recorded Body weight Body temperature Oxygen saturation Heart rate Provider Name and Address Organization Details Last Updated DateTime 12/28/2022 85368.87 g 97.6 [degF] 99 % 112 /min NOEL KEENAN [facility] 12/28/2022 18:59:43 Social History None recorded. Functional Status None recorded. Mental Status None recorded. Family History Nothing Reported. Medical History No medical history recorded. Gynecological HistoryNo gynecological history recorded. Obstetrics History GPAL:G 0 P 0 0 0 0 Past Encounters Encounter ID Performer Location Encounter Start Date Encounter Closed Date Diagnosis/Indication Diagnosis SNOMED-CT Code Diagnosis ICD10 Code Diagnosis IMO Codes Diagnosis Note [id number] Malcolm Perez MD [facility] ([facility]) [address] [place] [phone] 12/28/2022 18:52:13 12/28/2022 19:53:00 Atopic dermatitis 19863969 L20.9 We will increase the potency of steroid. Continue with twice daily moisturize r. Follow-up with PCP if symptoms do not improve. [id number] CAMMY PUTNAM APRN [facility] ([facility]) [address] [place] [phone] 06/03/2024 16:53:12 06/03/2024 17:32:54 Acute serous otitis media of bilateral ears 8426086730 057844 H65.03 Health Concerns Section Related Observation LastModified by Organization Detai ls LastModified Time None Recorded Concern Status LastModified by Organization Details LastModified Time None Recorded Advance Directives Directive None Recorded Payers Insurance Date Sequence Insurance Name Policy Number Policy Portillo Covered Member ID Portillo Member ID Guarantor Name 06/03/2024 1 [employer] (MEDICARE REPLACEMENT/A DVANTAGE - PPO) Caroline Huitron [id number] Caroline Huitron 06/03/2024 1 [facility] (MEDICARE REPLACEMENT/A DVANTAGE - HMO) [id number] Caroline Huitron [id number] Caroline Lackey Tomy Notes Date Note Type Note Provider Name and Address Organization Details Recorded Time 12/28/2022 text/html General Rash/Ski n LesionReported by PatientHPIFor quality, patient reportsitchy,painful, anddry. For location, patient reportsfeet. For duration, patient reportshas noted for <1 week. For onset/timing, patient reportsrecurring. For associated symptoms, patient reportsno fever,no nausea,no vomiting, andno diarrhea.The patient has a history of eczema on her feet. Patient reports that triamcinolone typically improves it but it has not been helping over the last couple days.ROS as noted in the HPI Malcolm Perez MD [address] [place] [address], [phone], [facility] 12/28/2022 19:34:03 06/03/2024 text/html walk in ptPt has bilateral ear pain for 2 weeks. She has been on antibiotic and sudafed CAMMY PUTNAM APRN [address] [place], [address], [facility] 06/03/2024 17:30:14 OBGyn Episode No OBEpisode recorded.
--- OUTSIDE RECORDS SUMMARY | 2025-04-09 17:39 | XMS_ITS | Encounter Summary ---
Author Organization [facility] Address [address] [place] [address] Care Team Providers Care Pre Sales Architect Name Role Phone Tyler Rachel MD, Tyrese Inman Primary Care Provider Encounter Details Date Type Department Care Team (Late st Contact Info) Description 08/08/2007 Emergency [facility] Emergency Department [address] 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
--- OUTSIDE RECORDS SUMMARY | 2025-04-09 17:40 | XMS_ITS | Patient Health Record ---
Author Organization [facility] Address [address] [place] [address] Care Team Providers Care Cook Candy Name Role Phone Tyrese Scott Unavailable [phone] Allergies Allergen (clinical drug ingredient) Drug/Non Drug Allergy documented on EMR Reaction Allergy Type Onset Date Status erythromycin Erythromycin Base Unknown Drug Allergy Active Iodinated contrast media (substance) Iodinated Diagnostic Agents Unknown Drug Allergy Active Substance with penicillin structure and antibacterial mechanism of action (substance) Penicillins Unknown Drug Allergy Active Reason For Referral No Information Medications Medication SIG (Take, Route, Frequency, Duration) Notes Start Date End Date Status traZODone HCl 50 MG Tablet 2 tab Orally at bedtime; Duration: 30 day(s) Active lamoTRIgine 100 MG Tablet 1 tablet Orally Twice daily; Duration: 90 Active OXcarbazepine 150 MG Tablet 2 tablets Orally Twice a day; Duration: 30 day(s) Active HYDROcodone-Acetamin ophen 5-325 MG Tablet 1 tablet as needed Orally every 6 hrs [facility] Not-Taking lamoTRIgine 25 MG Tablet 2 tablet Orally Twice daily; Duration: 30 Active Ranitidine *Reorder from [employer] for eRx and Interaction Alerts* Active Pregabalin 75 MG Capsule 1 capsule Orally Twice daily; Duration: 30 days 06/11/2019 Active Benadryl *Reorder from [employer] for eRx and Interaction Alerts* Active busPIRone HCl 10 MG Tablet 1 tablet Orally Three times a day prn; Duration: 30 days 06/11/2019 Active buPROPion HCl *Pick strength-form from [employer] for eRX* Active Immunizations Vaccine Route Administration Date Status Comme nts Flu vaccine no Preserv 3 and > Unknown 01/17/2012 Admin istered Flu vaccine no Preserv 3 and > Unknown 01/23/2013 Admin istered zzTetanus toxoid, absorbed Unknown 02/16/2011 Administe red Social History Tobacco Use: Social History Observation Description Date Details (start date - stop date) Current Smoker NA - NA Social History Drugs/Alcohol: Social Info Question Answer Notes Alcohol Screen (Audit-C) Did you have a drink containing alcohol in the past year? No Points 0 Interpretation Negative Drugs Have you used drugs other than those for medical reasons in the past 12 months? No Household: Social Info Question Answer Notes Household Marital status: Number of adults in household: 1 Number of children in household: 1 Level of education: finished high school Tobacco Use: Social Info Question Answer Notes xTobacco Use/Smoking Are you a current smoker How often do you smoke cigarettes? every day How many cigarettes a day do you smoke? 11-20 How soon after you wake up do you smoke your first cigarette? 6-30 minutes Are you interested in quitting? Ready to quit Additional Details Category Social Info Options Details Drugs/Alcohol: Do you smoke marijuana? De nies Do you drink alcohol? No Migrated Social History Migrated Social History Alcoholic beverages? - No, Currently on disability? - Yes, Drug or substance abuse? - No, Marital Status - , Nonprescription drug use? - No, Smoking - 1/2 PPD, Working currently? - No Problems Problem Type SNOMED Code ICD Code Onset Dates Problem Status W/U Status Risk Notes Problem Essential hypertension (34273988) Essential (primary) hypertension (I10) Active confirmed Problem Fibromyalgia (066200565) Fibromyalgia (M79.7) Active confirmed Problem Bipolar 1 disorder (338270666) Bipolar 1 disorder (F31.9) Active confirmed Problem Generalized anxiety disorder (92358653) Anxiety, generalized (F41.1) Active confirmed Problem Obstructive sleep apnea syndrome (36027294) Obstructive sleep apnea (adult) (pediatric) (327.23) 015 Active confirmed [id number]-[id number] 911- Problem Allergic rhinitis caused by pollen (74889827) Allergies (477.0) 014 Active confirmed Angelo-985 911- Problem Bipolar I disorder, most recent episode (or current) depressed (296.5) 019 Active confirmed [id number]-985 911- Problem Migraine with aura (8080698) Classic migraine (346.00) 017 Active confirmed Angelo-985 911- Problem Lumbar radiculopathy (141935346) Lumbar radiculopathy (722.10) 013 Active confirmed Angelo-985 911- Problem Essential hypertension (24046548) Essential hypertension (401.1) 018 Active confirmed Angelo-985 911- Problem Recurrent major depression (56700721) Major depression, recurrent episode, unspecified (296.30) 019 Active confirmed Angelo-985 911- Problem Phobia (951338422) Phobia, unspecified (300.20) 014 Problem resolved confirmed Angelo-985 911- Problem Allergic rhinitis caused by pollen (disorder) (83440753) Allergic rhinitis due to pollen (477.0) 013 Problem resolved confirmed Angelo-985 911- Problem Acute maxillary sinusitis (68953946) Acute maxillary sinusitis (461.0) 016 Problem resolved confirmed Angelo-985 911- Problem Acute Laryngitis (1368220) Acute laryngitis, without mention of obstruction (464.00) 013 Problem resolved confirmed Angelo-985 911- Problem Endometriosis (899666373) Endometriosis of other specified sites (617.8) 017 Problem resolved confirmed Angelo-985 911- Problem Dyspareunia (08019098) Dyspareunia (625.0) 014 Problem resolved confirmed Angelo-985 911- Problem Irregular menstrual cycle (24594569) Irregular menstrual cycle (626.4) 013 Problem resolved confirmed Angelo-985 911- Problem 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) Dyshidrosis (705.81) 017 Problem resolved confirmed Angelo-985 911- Problem Cough (41999242) Cough (786.2) 014 Problem resolved confirmed Angelo-985 911- Problem Heartburn (85854495) Heartburn (787.1) 015 Problem resolved confirmed Angelo-985 911- Problem Gynecological examination normal (566935113955914) Routine gynecological examination (V72.31) 014 Problem resolved confirmed Angelo-985 911- Problem Fibromyalgia (888056948) Fibromyalgia (729.1) 013 Problem resolved confirmed Angelo-985 911- Problem Anemia (715865036) Anemia, unspecified (285.9) 015 Problem resolved confirmed Angelo-985 911- Problem Rash (890429547) Rash (782.1) 013 Problem resolved confirmed Angelo-985 911- Problem Dizziness (021040610) Dizziness (780.4) 016 Problem resolved confirmed Angelo-985 911- Problem Generalized pain (42011694) Generalized pain (780.99) 018 Problem resolved confirmed Angelo-985 911- Problem Headache (78517776) Headache (307.81) 014 Problem resolved confirmed Angelo-985 911- Problem Mild recurrent major depression (04957898) Major depression, recurrent episode, mild (296.31) 016 Problem resolved confirmed Angelo-985 911- Problem Right lower quadrant pain (250601388) Right lower quadrant abdominal pain (789.03) 018 Problem resolved confirmed Angelo-985 911- Problem Candidal vulvovaginitis (62108898) Yeast vaginitis (112.1) 014 Problem resolved confirmed Angelo-985 911- Problem Screening for cardiovascular system disease (procedure) (398390171) Screening for cardiovascular conditions (V81.2) 015 Problem resolved confirmed Angelo-985 911- Problem Supraventricular tachycardia (0237059) Supraventricular tachycardia (427.0) 013 Problem resolved confirmed Angelo-985 911- Problem Allergic rhinitis due to allergen (81671828) Allergic rhinitis, other allergen-induced (477.8) 013 Problem resolved confirmed Angelo-985 911- Problem Chronic ulcerative pancolitis (439682453) Chronic diffuse ulcerative colitis (556.6) 018 Problem resolved confirmed Angelo-985 911- Problem Disorder of hematopoietic system (76094413) Other abnormal findings on blood examination (790.99) 018 Problem resolved confirmed Angelo-985 911- Problem Psoriasis (0738894) Psoriasis (696.1) 019 Problem resolved confirmed Angelo-985 911- Problem Sore throat (219167130) Sore Throat (462) 014 Problem resolved confirmed Angelo-985 911- Problem Tobacco abuse (2960857087) Tobacco abuse (305.1) Problem resolved confirmed Angelo-985 911- Problem Tobacco dependence (01068563) Tobacco dependence (305.1) Problem resolved confirmed Angelo-985 911- Problem Generalized abdominal pain (685112561) Generalized abdominal pain (789.07) Problem resolved confirmed Angelo-985 911- Problem Intolerant of heat (35811082) Heat intolerance (780.99) Problem resolved confirmed Angelo-985 911- Problem Insomnia (238209061) Insomnia (307.41) Problem resolved confirmed Angelo-985 911- Problem Serotonin syndrome (629466877) Serotonin syndrome (333.99) 018 Problem resolved confirmed Angelo-985 911- Problem Breast tenderness (90140798) Breast tenderness (611.71) Problem resolved confirmed Angelo-985 911- Problem Iron deficiency anemia (46230919) Other specified iron deficiency anemia (280.8) Problem resolved confirmed Angelo-985 911- Problem Otitis externa (8034890) Otitis externa (380.10) Problem resolved confirmed Angelo-985 911- Problem Needs influenza immunization (322870579) Vaccination against other viral diseases, Influenza (V04.81) Problem resolved confirmed Angelo-985 911- Problem Acute upper respiratory infection (88816184) Acute upper respiratory infection (465.8) Problem resolved confirmed Angelo-985 911- Problem Anxiety depression (167465455) Anxiety with depression (300.4) Problem resolved confirmed Angelo-985 911- Problem Clostridial enteric disease (231251865) Clostridium difficile enterocolitis (008.45) 018 Problem resolved confirmed Angelo-985 911- Problem Paresthesia (33473706) Paresthesia (782.0) 013 Problem resolved confirmed Angelo-985 911- Problem Acute stress disorder (15679464) Situational stress reaction (308.3) 014 Problem resolved confirmed Angelo-985 911- Problem Acute otitis media (8772438) Acute otitis media (382.00) 014 Problem resolved confirmed Angelo-985 911- Problem Cellulitis and abscess of trunk (550027143) Cellulitis of the chest wall (682.2) 016 Problem resolved confirmed Angelo-985 911- Problem Cervical radiculopathy (93573780) Cervical radiculopathy (723.4) 016 Problem resolved confirmed Angelo-985 911- Problem Chronic catarrhal laryngitis (336507569) Chronic catarrhal laryngitis (476.0) 013 Problem resolved confirmed Angelo-985 911- Problem Pain in female pelvis (950023483) Female pelvic pain (625.9) 013 Problem resolved confirmed Angelo-985 911- Problem Urinary hesitancy (1308759) Urinary hesitancy (788.62) 014 Problem resolved confirmed Angelo-985 911- Problem Anxiety state (161969896) Anxiety states, other (300.09) 016 Problem resolved confirmed Angelo-985 911- Problem Altered mental status (679595784) Change in mental status (780.97) 016 Problem resolved confirmed Angelo-985 911- Problem Malaise and fatigue (152349232) Daytime Fatigue (780.79) 015 Problem resolved confirmed Angelo-985 911- Problem Tinea pedis (1907488) Tinea pedis (110.4) 013 Problem resolved confirmed Angelo-985 911- Problem Dermatophytosis (68799505) Trichophytic tinea (110.9) 014 Problem resolved confirmed Angelo-985 911- Problem Generalized osteoarthritis (018491681) Generalized osteoarthritis (715.09) 017 Problem resolved confirmed Angelo-985 911- Problem Hoarseness (88921731) Hoarseness (784.49) 018 Problem resolved confirmed Angelo-985 911- Problem Nausea and vomiting (15642274) Nausea and vomiting (787.01) 015 Problem resolved confirmed Angelo-985 911- Problem Influenza vaccination (71449306) Influenza vaccination (V04.81) 014 Problem resolved confirmed Angelo-985 911- Problem Convulsion (43410046) Seizure(s) (780.39) 014 Problem resolved confirmed Angelo-985 911- Problem Syncope (517986310) Syncope (780.2) 014 Problem resolved confirmed Angelo-985 911- Problem Thoracic back pain (229158515) Upper back pain (724.5) 016 Problem resolved confirmed Angelo-985 911- Problem Thrombophlebitis (83752941) Thrombophlebitis of breast (Mondors disease) (451.89) 017 Problem resolved confirmed Angelo-985 911- Plan Of Treatment No Information Insurance Providers Payer Name Payer Address Payer Phone Subscriber Number Group Number Insured Name Patient Relationship to Insured Coverage Start Date Coverage End Date [place] [address] [address] [place] [phone] [id number] Caroline Huang Self - patient is the insured 3 Medical (General) History Medical History History ICD Code Hypertension Bipolar disorder Depression Generalized anxiety disorder Insomnia Osteoarthritis Fibromyalgia Lumbar radiculopathy Migraines Allergies; seasonal Sleep apnea Endometriosis Psoriasis Surgical History Surgery Date(Month/Year) Cholecystectomy Hysterectomy Adenoidectomy Breast reduction Achilles Tendon; bilateral Achilles tendon repair adnoid removal Gallbladder surgery Hospitalization History Reason Date(Month/Year) Childbirth
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
--- OUTSIDE RECORDS SUMMARY | 2025-04-09 17:40 | XMS_ITS | Encounter Summary ---
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
--- OUTSIDE RECORDS SUMMARY | 2025-04-09 17:40 | XMS_ITS | Encounter Summary ---
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
--- NOTE | 2025-04-09 17:57 | ED_ITS ---
Documented by User: ENMA Mosley 04/09/25 18:43 HPI - Extremity Problem General: Chief complaint: Extremity Injury, Lower Stated complaint: left foot pain Time Seen by Provider: 04/09/25 17:33 Source: patient Mode of arrival: ambulatory Limitations: no limitations History of Present Illness: Patient is a 40-year-old female with past medical history of fibromyalgia, arthritis, presenting to the emergency department with left foot and ankle pain for greater than a week. 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 She states that over the course of the week the symptoms have gotten to where it is painful to bear weight, and she has pain even without weightbearing or range of motion, and can feel the pain while at rest. She arrives with Phil wrap and compression present, states this helps with the pain but does not completely ameliorated. Pain she feels most is in the plantar aspect but she also has quite a bit of pain in the heel and the Achilles region and radiates up the back of her leg. A couple of days following the injury she went to urgent care was diagnosed with Achilles pathology but did not have any imaging done at that time. She has been taking Motrin and Tylenol with little relief, she does report to me a history of Achilles surgery as a child to that same leg. She has no neurovascular symptoms to report, no coolness of the extremity, no sensory changes. MD Complaint: extremity pain Onset (ago): week(s) Pain Consistency: constant Location: left and lower extremity (foot/ankle) Exacerbating factors: range of motion, weight bearing and walking Associated symptoms: Deny chest pain, fever(s) or rash Related Data Previous Rx's ?Medication ?Instructions ?Recorded fluticasone propionate 50 2 spray intranasal DAILY #16 grams 02/16/22 mcg/actuation nasal spray,suspension (Flonase Allergy Relief) fluticasone fur. 200 mcg-umeclid 1 inh inhalation ARNOLD Y #60 ea 02/16/23 62.5 mcg-vilant 25 mcg inhalat.powder (Trelegy Ellipta) ondansetron HCl 4 mg tablet 4 mg PO Q8H PRN nausea and 04/26/23 vomiting #30 tabs tizanidine 4 mg tablet See Rx Instructions .Route 0 11/21/23 .COMPLEX #30 tabs albuterol sulfate 90 mcg/actuation See Rx Instructions .Route 01/30/24 aerosol inhaler .COMPLEX #8.5 grams epinephrine 0.3 mg/0.3 mL 0.3 mg (0.3 mL) IM Q10M PRN 01/30/24 injection, auto-injector anaphylaxis #2 ea hydroxychloroquine 200 mg tablet 200 mg PO BID #180 ta bs 09/13/24 leflunomide 20 mg tablet 20 mg PO BEDTIME #90 tabs prednisone 20 mg tablet See Rx Instructions PO .COMP AMIE 09/13/24 PRN joint pain flare #30 tabs bupropion HCl 300 mg 24 hr tablet, 300 mg PO QAM #30 t abs 03/20/25 extended release (Wellbutrin XL) hydroxyzine HCl 25 mg tablet 25 mg PO BID PRN 03/20/25 itching/anxiety/insomnia #60 tabs quetiapine 25 mg tablet (Seroquel) 25 mg PO BEDTIME #3 0 tabs 03/20/25 Allergies Allergy/AdvReac Type Severity Reaction Status Date / Time Penicillins Allergy Intermediate ALGY-Rash Verified 04/02/25 18:07 Iodinated Contrast Media Allergy Mild hives Verified 04/02/25 18:07 milnacipran (From Savella) Allergy Mild vomiting Verified 04/02/25 18:07 erythromycin base (From AdvReac Intermediate ALGY-Rash Verified 04/02/25 18:07 Erythrocin) duloxetine (From Cymbalta) AdvReac Mild vomiting Verified 04/02/25 18:07 Review of Systems General: Reports: 10 or more systems reviewed and unremarkable except in HPI and below Const: Denies: fever(s) or chills Card: Denies: chest pain Resp: Denies: dyspnea or productive cough GI: Denies: abdominal pain, nausea, vomiting or diarrhea : Denies: flank pain Musc: Reports: extremity pain (left foot/ankle/lower leg); Denies: neck pain, back pain, extremity swelling, joint pain, joint swelling, joint redness, joint warmth, limited range of motion or muscle weakness Skin/Breast: Denies: rash Neuro: Denies: headache(s), numbness in extremities or weakness in extremities PFSH ED PFSH: Medical History Post-traumatic stress disorder, chronic Nicotine dependence, cigarettes, uncomplicated Generalized anxiety disorder Major depressive disorder, recurrent episode, moderate with anxious distress Attention deficit hyperactivity disorder (ADHD), combined type, moderate Encounter to establish care Tree nut allergy Obesity (BMI 30-39.9) Eczema Immunization counseling Seronegative rheumatoid arthritis of both hands Inflammatory arthritis Headache disorder Insomnia, psychophysiological Fibromyalgia DDD (degenerative disc disease), lumbar Psychiatric care RADHA (obstructive sleep apnea) Surgical History H/O: hysterectomy History of cholecystectomy History of adenoidectomy History of bilateral breast reduction surgery Family History Other Cancer Hypertension Denies family history of Lupus (systemic lupus erythematosus) Rheumatoid arthritis Colon cancer Ovarian cancer Diabetes Heart disease Hypercholesteremia Chronic kidney disease (CKD) Breast cancer Lung disease Uterine cancer Thyroid disease Stroke Social History Smoking and tobacco/nicotine status: current every day tobacco/nicotine user cigarettes Packs smoked per day: 0.5 [ Other cigarette details: pt in process of quitting] Alcohol intake: never Physical Exam Const: COMMON NORMALS: no acute distress, patient oriented x3, no limitations, healthy appearing, alert and well nourished HENMT: COMMON NORMALS: normocephalic and atraumatic HEAD & SCALP: normocephalic and atraumatic Neck/C-Spine: COMMON NORMALS: full ROM, supple and no meningeal signs Extremity: NARRATIVE EXTREMITY EXAM: The patient has tenderness to palpation about the plantar aspect of the left foot, has tenderness of the left heel with positive calcaneal squeeze test, and tenderness to palpation to the left Achilles region with negative Scott's test. There is no palpable deformity within the Achilles region. She has active and passive pain with both plantar and dorsiflexion of the left foot, however the strength seems to be intact. No sensory changes, normal capillary refill. Pulses are present. No tenderness of the proximal left calf. There is no swelling, bruising, erythema, or other signs of trauma or deformity. Neuro: COMMON NORMALS: patient oriented x3, moves all extremities, no focal motor deficits and no sensory deficits noted SENSORIUM/ORIENTATION: Yes alert MENINGEAL SIGNS: Yes no meningeal signs Skin: COMMON NORMALS: no rashes or lesions noted GENERAL SKIN EXAM: no rashes or lesions noted Course Vital Signs: Vital signs: Vital Signs Temperature 97.9 F 04/09/25 17:36 Pulse Rate 97 04/09/25 17:36 Respiratory Rate 16 04/09/25 17:36 Blood Pressure 162/98 04/09/25 17:36 Pulse Oximetry 99 04/09/25 17:36 MDM - Extremity (Nontraumatic) Medical Decision Making 40-year-old female with acute left foot and heel pain after jogging. Exam notable for tenderness at the Achilles region, heel, and plantar foot, with pain on both plantarflexion and dorsiflexion. Scott test negative and no palpable defect; distal neurovascular exam normal. X-rays of the foot and ankle are negative. Likely etiology includes Achilles tendinopathy, partial Achilles te ar, retrocalcaneal bursitis, or plantar fascia injury; early stress fracture cannot be entirely excluded. Patient will be provided a walking boot for immobilization and pain control, and given Toradol and a single dose of dexamethasone for inflammation. She will be referred to orthopedic surgery for further evaluation, including possible MRI if symptoms persist. Advised to limit weightbearing activities as tolerated and follow-up probably for worsening pain, swelling, or functional deficit. Lab Data Radiology Impressions Ankle X-Ray 04/09/25 17:53 IMPRESSION: No evidence of acute fracture or dislocation. Foot X-Ray 04/09/25 17:53 IMPRESSION: No evidence of acute fracture or dislocation. All radiology interpretation(s) finalized by discharge Discharge Plan Discharge Patient Disposition: Home Clinical Impression: Arch pain of left foot Condition: Stable Prescriptions: No Action fluticasone propionate [Flonase Allergy Relief] 50 mcg/actuation spray,suspension 2 spray intranasal DAILY Qty: 16 0RF Rx Instructions: administer into each nostril ondansetron HCl 4 mg tablet 4 mg PO Q8H PRN (Reason: nausea and vomiting) Qty: 30 1RF Trelegy Ellipta 200-62.5-25 mcg blister with device 1 inh inhalation DAILY Qty: 60 5RF hydroxychloroquine 200 mg tablet 200 mg PO BID Qty: 180 1RF prednisone 20 mg tablet See Rx Instructions PO .COMPLEX PRN (Reason: joint pain flare) Qty: 30 1RF Rx Instructions: take 1 or 2 tab daily for up to 7 days as needed for arthritis flare PO PRN; leflunomide 20 mg tablet 20 mg PO BEDTIME Qty: 90 1RF epinephrine 0.3 mg/0.3 mL auto-injector 0.3 mg IM Q10M PRN (Reason: anaphylaxis) Qty: 2 0RF Rx Instructions: for 2 doses albuterol sulfate 90 mcg/actuation HFA aerosol inhaler See Rx Instructions .ROUTE .COMPLEX Qty: 8.5 5RF Dose Instruction: INHALE TWO PUFFS BY MOUTH EVERY 6 HOURS NEEDED FOR SHORTNESS OF BREATH OR FOR WHEEZING Rx Instructions: INHALE TWO PUFFS BY MOUTH EVERY 6 HOURS NEEDED FOR SHORTNESS OF BREATH OR FOR WHEEZING hydroxyzine HCl 25 mg tablet 25 mg PO BID PRN (Reason: itching/anxiety/insomnia) Qty: 60 3RF Rx Instructions: May take one tablet twice per day as needed for itching, anxiety and insomnia bupropion HCl [Wellbutrin XL] 300 mg tablet extended release 24 hr 300 mg PO QAM Qty: 30 3RF Rx Instructions: Take one tablet every morning quetiapine [Seroquel] 25 mg tablet 25 mg PO BEDTIME Qty: 30 3RF Rx Instructions: Take one tablet at bedtime tizanidine 4 mg tablet See Rx Instructions .ROUTE .COMPLEX Qty: 30 0RF Dose Instruction: TAKE 1 TABLET BY MOUTH TWICE DAILY NEEDED FOR MUSCLE SPASTICITY Rx Instructions: TAKE 1 TABLET BY MOUTH TWICE DAILY NEEDED FOR MUSCLE SPASTICITY Discharge Orders: Discharge ED (Routine); Ordered 04/09/25 Ordered By: Matthias Washington Other Ambulatory Orders: DME: Miscellaneous (Order) Location: None Selected Ordered By: Matthias Washington Referrals: Yolanda Mccord NP [Primary Care Provider, Family Practice] Patient Instructions: Patient Portal & Cha Instructions Activity Restrictions/Additional Instructions: Discharge Instructions Diagnosis: You have been diagnosed with pain in the arch of your left foot, along with pain in your left Achilles tendon (the tendon at the back of your ankle) and heel bone (calcaneus). What You Need to Know: Your foot pain may take several weeks to months to improve. Many people with similar foot conditions continue to have some symptoms for an extended period, but most improve with proper treatment and self-care. Walking Boot: - Wear the walking boot as directed to reduce stress on your foot and ankle - The boot helps protect your foot while it heals and allows you to walk with less pain - You may remove the boot for bathing and sleeping unless instructed otherwise Activity Modifications: - Avoid activities that make your pain worse - Limit prolonged standing, walking, and high-impact activities - Do not walk barefoot, especially on hard surfaces - Avoid wearing flat shoes or shoes without good arch support Home Care: Pain Management: - Apply ice to painful areas for 15-20 minutes, 3-4 times daily - You may take [id number] pain relievers (such as ibuprofen or naproxen) as directed on the package, unless you have been told not to take these medications Stretching Exercises: - Perform calf muscle stretches regularly - this is one of the most important things you can do to help your foot heal - Stretch your calf by standing facing a wall, placing your hands on the wall, and stepping back with the affected leg while keeping your heel on the ground - Hold each stretch for 30 seconds and repeat several times daily - These exercises have been shown to significantly reduce pain over time Foot Support: - Consider using [id number] arch supports or heel cushions in your regular shoes when not wearing the boot - These inserts can help reduce strain on your foot structures Warning Signs - Seek Medical Attention If You Experience: - Severe, worsening pain that does not improve with rest and pain medication - Numbness or tingling in your foot or toes - Inability to bear weight on your foot - Signs of infection (increased redness, warmth, swelling, or drainage) - Fever Follow-Up Care: - You have been referred to orthopedics for an MRI of your left foot - The prepress specialist will review your MRI results and determine the best treatment plan - Keep all scheduled appointments - If you do not receive a call to schedule your orthopedic appointment within one week, please call your primary care provider Additional Information: - Weight loss, if applicable, may help reduce stress on your foot - Continue your stretching exercises even after your pain improves to help prevent recurrence - Recovery may take time - be patient with the healing process and follow your treatment plan consistently If you have any questions or concerns about your condition or these instructions, please contact your healthcare provider. Print Language: Citizen [place] Coding Level of Care Code ED Environmental Maintenance Worker for Chg Fwd Documented by User: Lewis Londono DO 04/12/25 22:10 HPI - Extremity Problem General: Chief complaint: Extremity Injury, Lower Stated complaint: left foot pain Time Seen by Provider: 04/09/25 17:33 Related Data Previous Rx's ?Medication ?Instructions ?Recorded fluticasone propionate 50 2 spray intranasal DAILY #16 grams 02/16/22 mcg/actuation nasal spray,suspension (Flonase Allergy Relief) fluticasone fur. 200 mcg-umeclid 1 inh inhalation ARNOLD Y #60 ea 02/16/23 62.5 mcg-vilant 25 mcg inhalat.powder (Trelegy Ellipta) ondansetron HCl 4 mg tablet 4 mg PO Q8H PRN nausea and 04/26/23 vomiting #30 tabs tizanidine 4 mg tablet See Rx Instructions .Route 0 11/21/23 .COMPLEX #30 tabs albuterol sulfate 90 mcg/actuation See Rx Instructions .Route 01/30/24 aerosol inhaler .COMPLEX #8.5 grams epinephrine 0.3 mg/0.3 mL 0.3 mg (0.3 mL) IM Q10M PRN 01/30/24 injection, auto-injector anaphylaxis #2 ea hydroxychloroquine 200 mg tablet 200 mg PO BID #180 ta bs 09/13/24 leflunomide 20 mg tablet 20 mg PO BEDTIME #90 tabs prednisone 20 mg tablet See Rx Instructions PO .COMP AMIE 09/13/24 PRN joint pain flare #30 tabs bupropion HCl 300 mg 24 hr tablet, 300 mg PO QAM #30 t abs 03/20/25 extended release (Wellbutrin XL) hydroxyzine HCl 25 mg tablet 25 mg PO BID PRN 03/20/25 itching/anxiety/insomnia #60 tabs quetiapine 25 mg tablet (Seroquel) 25 mg PO BEDTIME #3 0 tabs 03/20/25 Allergies Allergy/AdvReac Type Severity Reaction Status Date / Time Penicillins Allergy Intermediate ALGY-Rash Verified 04/02/25 18:07 Iodinated Contrast Media Allergy Mild hives Verified 04/02/25 18:07 milnacipran (From Savella) Allergy Mild vomiting Verified 04/02/25 18:07 erythromycin base (From AdvReac Intermediate ALGY-Rash Verified 04/02/25 18:07 Erythrocin) duloxetine (From Cymbalta) AdvReac Mild vomiting Verified 04/02/25 18:07 [facility] ED PFSH: Medical History Post-traumatic stress disorder, chronic Nicotine dependence, cigarettes, uncomplicated Generalized anxiety disorder Major depressive disorder, recurrent episode, moderate with anxious distress Attention deficit hyperactivity disorder (ADHD), combined type, moderate Encounter to establish care Tree nut allergy Obesity (BMI 30-39.9) Eczema Immunization counseling Seronegative rheumatoid arthritis of both hands Inflammatory arthritis Headache disorder Insomnia, psychophysiological Fibromyalgia DDD (degenerative disc disease), lumbar Psychiatric care RADHA (obstructive sleep apnea) Surgical History H/O: hysterectomy History of cholecystectomy History of adenoidectomy History of bilateral breast reduction surgery Family History Other Cancer Hypertension Denies family history of Lupus (systemic lupus erythematosus) Rheumatoid arthritis Colon cancer Ovarian cancer Diabetes Heart disease Hypercholesteremia Chronic kidney disease (CKD) Breast cancer Lung disease Uterine cancer Thyroid disease Stroke Social History Smoking and tobacco/nicotine status: current every day tobacco/nicotine user cigarettes Packs smoked per day: 0.5 [ Other cigarette details: pt in process of quitting] Alcohol intake: never Course Vital Signs: Vital signs: Vital Signs Temperature 97.9 F 04/09/25 17:36 Pulse Rate 97 04/09/25 17:36 Respiratory Rate 16 04/09/25 17:36 Blood Pressure 162/98 04/09/25 17:36 Pulse Oximetry 99 04/09/25 17:36 MDM - Extremity (Nontraumatic) Medical Decision Making 40-year-old female with acute left foot and heel pain after jogging. Exam notable for tenderness at the Achilles region, heel, and plantar foot, with pain on both plantarflexion and dorsiflexion. Scott test negative and no palpable defect; distal neurovascular exam normal. X-rays of the foot and ankle are negative. Likely etiology includes Achilles tendinopathy, partial Achilles tear, retrocalcaneal bursitis, or plantar fascia injury; early stress fracture cannot be entirely excluded. Patient will be provided a walking boot for immobilization and pain control, and given Toradol and a single dose of dexamethasone for inflammation. She will be referred to orthopedic surgery for further evaluation, including possible MRI if symptoms persist. Advised to limit weightbearing activities as tolerated and follow-up probably for worsening pain, swelling, or functional deficit. Chart reviewed Lab Data Radiology Impressions Ankle X-Ray 04/09/25 17:53 IMPRESSION: No evidence of acute fracture or dislocation. Foot X-Ray 04/09/25 17:53 IMPRESSION: No evidence of acute fracture or dislocation. Discharge Plan Discharge Patient Disposition: Home Clinical Impression: Arch pain of left foot Condition: Stable Prescriptions: No Action fluticasone propionate [Flonase Allergy Relief] 50 mcg/actuation spray,suspension 2 spray intranasal DAILY Qty: 16 0RF Rx Instructions: administer into each nostril ondansetron HCl 4 mg tablet 4 mg PO Q8H PRN (Reason: nausea and vomiting) Qty: 30 1RF Trelegy Ellipta 200-62.5-25 mcg blister with device 1 inh inhalation DAILY Qty: 60 5RF hydroxychloroquine 200 mg tablet 200 mg PO BID Qty: 180 1RF prednisone 20 mg tablet See Rx Instructions PO .COMPLEX PRN (Reason: joint pain flare) Qty: 30 1RF Rx Instructions: take 1 or 2 tab daily for up to 7 days as needed for arthritis flare PO PRN; leflunomide 20 mg tablet 20 mg PO BEDTIME Qty: 90 1RF epinephrine 0.3 mg/0.3 mL auto-injector 0.3 mg IM Q10M PRN (Reason: anaphylaxis) Qty: 2 0RF Rx Instructions: for 2 doses albuterol sulfate 90 mcg/actuation HFA aerosol inhaler See Rx Instructions .ROUTE .COMPLEX Qty: 8.5 5RF Dose Instruction: INHALE TWO PUFFS BY MOUTH EVERY 6 HOURS NEEDED FOR SHORTNESS OF BREATH OR FOR WHEEZING Rx Instructions: INHALE TWO PUFFS BY MOUTH EVERY 6 HOURS NEEDED FOR SHORTNESS OF BREATH OR FOR WHEEZING hydroxyzine HCl 25 mg tablet 25 mg PO BID PRN (Reason: itching/anxiety/insomnia) Qty: 60 3RF Rx Instructions: May take one tablet twice per day as needed for itching, anxiety and insomnia bupropion HCl [Wellbutrin XL] 300 mg tablet extended release 24 hr 300 mg PO QAM Qty: 30 3RF Rx Instructions: Take one tablet every morning quetiapine [Seroquel] 25 mg tablet 25 mg PO BEDTIME Qty: 30 3RF Rx Instructions: Take one tablet at bedtime tizanidine 4 mg tablet See Rx Instructions .ROUTE .COMPLEX Qty: 30 0RF Dose Instruction: TAKE 1 TABLET BY MOUTH TWICE DAILY NEEDED FOR MUSCLE SPASTICITY Rx Instructions: TAKE 1 TABLET BY MOUTH TWICE DAILY NEEDED FOR MUSCLE SPASTICITY Discharge Orders: Discharge ED (Routine); Ordered 04/09/25 Ordered By: Matthias Washington Other Ambulatory Orders: DME: Miscellaneous (Order) Location: None Selected Ordered By: Matthias Washington Referrals: Yolanda Mccord NP [Primary Care Provider, Family Practice] Patient Instructions: Patient Portal & Cha Instructions Activity Restrictions/Additional Instructions: Discharge Instructions Diagnosis: You have been diagnosed with pain in the arch of your left foot, along with pain in your left Achilles tendon (the tendon at the back of your ankle) and heel bone (calcaneus). What You Need to Know: Your foot pain may take several weeks to months to improve. Many people with similar foot conditions continue to have some symptoms for an extended period, but most improve with proper treatment and self-care. Walking Boot: - Wear the walking boot as directed to reduce stress on your foot and ankle - The boot helps protect your foot while it heals and allows you to walk with less pain - You may remove the boot for bathing and sleeping unless instructed otherwise Activity Modifications: - Avoid activities that make your pain worse - Limit prolonged standing, walking, and high-impact activities - Do not walk barefoot, especially on hard surfaces - Avoid wearing flat shoes or shoes without good arch support Home Care: Pain Management: - Apply ice to painful areas for 15-20 minutes, 3-4 times daily - You may take [id number] pain relievers (such as ibuprofen or naproxen) as directed on the package, unless you have been told not to take these medications Stretching Exercises: - Perform calf muscle stretches regularly - this is one of the most important things you can do to help your foot heal - Stretch your calf by standing facing a wall, placing your hands on the wall, and stepping back with the affected leg while keeping your heel on the ground - Hold each stretch for 30 seconds and repeat several times daily - These exercises have been shown to significantly reduce pain over time Foot Support: - Consider using [id number] arch supports or heel cushions in your regular shoes when not wearing the boot - These inserts can help reduce strain on your foot structures Warning Signs - Seek Medical Attention If You Experience: - Severe, worsening pain that does not improve with rest and pain medication - Numbness or tingling in your foot or toes - Inability to bear weight on your foot - Signs of infection (increased redness, warmth, swelling, or drainage) - Fever Follow-Up Care: - You have been referred to orthopedics for an MRI of your left foot - The prepress specialist will review your MRI results and determine the best treatment plan - Keep all scheduled appointments - If you do not receive a call to schedule your orthopedic appointment within one week, please call your primary care provider Additional Information: - Weight loss, if applicable, may help reduce stress on your foot - Continue your stretching exercises even after your pain improves to help prevent recurrence - Recovery may take time - be patient with the healing process and follow your treatment plan consistently If you have any questions or concerns about your condition or these instructions, please contact your healthcare provider. Print Language: [place] Coding Level of Care Code ED Environmental Maintenance Worker for Yolanda Almazan
== END 2025-04-09 18:58 | disposition home or self-care (01) ==
PROVIDERS: Emergency Provider Physician Assistant
DX: M79.672 Pain in left foot (principal); F17.210 Nicotine dependence, cigarettes, uncomplicated
CPT/HCPCS: 73610; 73630; 96372; 99284; J1100; J1885